=== PATIENT | male | born 1950 | race Caucasian/White ===

== ENCOUNTER 2017-07-22 14:14 | Inpatient (IN) | payer MEDICARE ==
[~2017-07-22] VITALS: Ht 172.7 cm; Wt 77.6 kg
[2017-07-22] MEDS ORDERED: IPRATROPIUM BROMIDE 0.5 MG/2.5 ML NEBU NEB ONE (14:30)
[2017-07-22] MEDS ORDERED: ALBUTEROL SULFATE 2.5 MG/3 ML NEBU NEB ONE (14:30)
[2017-07-22] MEDS ORDERED: IV NORMAL SALINE 500 ML BAG IV ONE (14:30)
[2017-07-22] MEDS ORDERED: methylPREDNISolone SOD SUCC 125 MG/2 ML VIAL IV ONE (14:30)
[2017-07-22] MEDS ORDERED: IPRATROPIUM BROMIDE 0.5 MG/2.5 ML NEBU ONE (14:34)
[2017-07-22] MEDS ORDERED: ALBUTEROL SULFATE 2.5 MG/3 ML NEBU ONE (14:34)
[2017-07-22 14:37] LABS: BASOPHILS % (AUTO) 0.4 % (0.0-2.0); EOSINOPHILS # (AUTO) 0.1 K/uL (0.0-0.7); EOSINOPHILS % (AUTO) 1.5 % (0.0-7.0); HEMATOCRIT 47.1 % (36.7-47.1); HEMOGLOBIN 15.5 g/dL (12.5-16.3); LYMPHOCYTES % (AUTO) 13.8 % (20.5-51.5); MEAN CORPUSCULAR HEMOGLOBIN 29.9 uug (23.8-33.4); MEAN CORPUSCULAR HGB CONC 33 g/dL (32.5-36.3); MEAN CORPUSCULAR VOLUME 90.9 fL (73.0-96.2); MONOCYTES # (AUTO) 0.9 K/uL (2.0-10.0); MONOCYTES % (AUTO) 12.1 % (0.0-11.0); NEUTROPHILS # (AUTO) 5.2 K/uL (1.8-8.9); NEUTROPHILS % (AUTO) 72.2 % (38.5-71.5); PLATELET COUNT (AUTO) 186 K/uL (152-348); RED BLOOD CELL COUNT(AUTO) 5.18 MIL/uL (4.06-5.63); WHITE BLOOD COUNT (AUTO) 7.2 K/uL (3.6-10.2)
[2017-07-22] MEDS ORDERED: GUAI-970 PO (14:39)
[2017-07-22] MEDS ORDERED: FAMO-132 PO (14:39)
[2017-07-22] MEDS ORDERED: ACET325T53 PO (14:39)
[2017-07-22] MEDS ORDERED: VITA400C24 PO (14:39)
[2017-07-22] MEDS ORDERED: ASCO500C18 PO (14:39)
[2017-07-22] MEDS ORDERED: TRYP500C PO (14:39)
[2017-07-22] MEDS ORDERED: LOPE2TAB23 PO (14:39)
[2017-07-22] MEDS ORDERED: ALPR0.5T8 PO ×2 (14:39)
[2017-07-22] MEDS ORDERED: MELA2.5L PO (14:39)
[2017-07-22] MEDS ORDERED: NA P133E4 RC (14:39)
[2017-07-22] MEDS ORDERED: CYAN10009 PO (14:39)
[2017-07-22] MEDS ORDERED: BISA10SU8 RC (14:39)
[2017-07-22] MEDS ORDERED: MAGN400O6 PO (14:39)
[2017-07-22] MEDS ORDERED: ZINC220C8 PO (14:39)
[2017-07-22] MEDS ORDERED: methylPREDNISolone SOD SUCC 125 MG/2 ML VIAL ONE (14:40)
[2017-07-22 14:45] LABS: POTASSIUM 4.2 mmol/L (3.5-5.1)
--- NOTE | 2017-07-22 14:45 | NUR ---
lab quang blood, solumedfrol iv administered , 500ml 0.9 ns bolus infusing, monitor shows sinus tach at 107, po2=97% on roomair, pt rec'd resp tx.
[2017-07-22 14:57] LABS: BILIRUBIN,DIRECT 0.1 mg/dL (0.0-0.2); BILIRUBIN,TOTAL 0.3 mg/dL (0.2-1.0); TOTAL PROTEIN, SERUM 7.9 g/dL (6.4-8.2)
[2017-07-22 15:40] VITALS: BP 150/83
--- NOTE | 2017-07-22 15:45 | NUR ---
NEW PATIENT FROM ER TO ROOM 215 AWAKE FORGETFUL ORTX1 HX OF DEMENTIA ON FALL /ASPIRATION PRECAUTION BED ALARM ON AND CALL LIGHT IN REACH AND REMIND TO CALL WHEN NEEDED
--- NOTE | 2017-07-22 16:00 | NUR ---
VS TAKEN STABLE FAMILY AT BEDSIDE COUGHING DRY NO SPUTUM SHABNAM LUNG STILL WHEEZING NO ACUTE DISTRESS CONTINUE O2 AT 2L O2 SAT WAS 94% CLOSED OBSERVATION
--- NOTE | 2017-07-22 17:00 | NUR ---
DR LIAO WAS CALL REGARDING NEW PATIENT NEED ADM ORDER AND MESSAGE LEFT
[2017-07-22] MEDS ORDERED: MAGNESIUM HYDROXIDE 30 ML LIQUID UDC PO PRN (17:30)
[2017-07-22] MEDS ORDERED: ONDANSETRON 4 MG/2 ML VIAL IV PRN (17:30)
[2017-07-22] MEDS ORDERED: FLEET ENEMA 133 ML BOTTLE RC PRN (17:30)
[2017-07-22] MEDS ORDERED: FAMOTIDINE 20 MG TABLET PO PRN (17:30)
[2017-07-22] MEDS ORDERED: Medication Not On Formulary EA (Ascorbic Acid (Vitamin C) 500 MG) PO SCH (17:30)
[2017-07-22] MEDS ORDERED: ACETAMINOPHEN 325 MG TABLET PO PRN (17:30)
[2017-07-22] MEDS ORDERED: ALPRAZOLAM 0.5 MG TABLET PO PRN ×2 (17:30)
[2017-07-22] MEDS ORDERED: BISACODYL 10 MG SUPP.RECT RC PRN (17:30)
--- NOTE | 2017-07-22 17:30 | NUR ---
DR LIAO HERE SEE PATIENT AND ORDER IN CHART,CXR DONE AT BEDSIDE RESTING NO SOB OR PAIN
[2017-07-22 17:40] LABS: *BILIRUBIN,URIN NEGATIVE (NEGATIVE); *BLOOD, URINE Trace-intact (NEGATIVE); *CLARITY,URINE CLEAR (CLEAR); *COLOR,URINE YELLOW (YELLOW); *KETONES,URINE 1+ (NEGATIVE); *PROTEIN,URINE TRACE (NEGATIVE); *UROBILINOGEN,URINE 0.2 E.U./dl (NORMAL); LEUKOCYTE ESTERASE ,URINE NEGATIVE (NEGATIVE); NITRITE, URINE NEGATIVE (NEGATIVE); PH,URINE 5.5 (5.0-8.0); UGLUCOSE NEGATIVE (NEGATIVE)
[2017-07-22 17:50] LABS: MUCUS,URINE MANY /LPF (0-FEW); WBC,URINE 0-3 /HPF (0-3)
--- NOTE | 2017-07-22 18:00 | NUR ---
EAT DINNER MOD AMT PO FLD CAMILO WELL VOIDING 150 ML UA SENT TO LAB ORDER
[2017-07-22] MEDS: CYANOCOBALAMIN 1,000 MCG TABLET PO SCH (18:28)
[2017-07-22] MEDS: VITAMIN E 400 UNITS CAPSULE PO SCH (18:28)
[2017-07-22] MEDS: methylPREDNISolone SOD SUCC 125 MG/2 ML VIAL IV SCH (18:28)
[2017-07-22] MEDS: ZINC SULFATE 220 MG CAPSULE PO SCH (18:28)
[2017-07-22] MEDS: ENOXAPARIN SODIUM 40 MG/0.4 ML DISP.SYRIN SQ SCH (18:29)
--- NOTE | 2017-07-22 18:30 | NUR ---
HEMODYNAMIC STATUS STABLE NO ACUTE DISTRESS CONTINUE O2 AT 2L O2 SAT 95% SAFETY MEASURE PROVIDED CALL LIGHT IN REACH AND BED ALARM ON
[2017-07-22 19:00] VITALS: BP 144/85
[2017-07-22] MEDS: IPRATROPIUM BROMIDE 0.5 MG/2.5 ML NEBU NEB SCH (19:30)
[2017-07-22] MEDS: ALBUTEROL SULFATE 2.5 MG/3 ML NEBU NEB SCH (19:30)
--- NOTE | 2017-07-22 19:54 | NUR ---
Observed to be receiving breathing tx at this time. No s/s of acute distress. Reoriented to time and place. Bed in low, locked position with bed alarm on. Call light within reach. Will continue to monitor closely.
[2017-07-22] MEDS ORDERED: MELATONIN PO SCH (21:00)
[2017-07-22] MEDS ORDERED: TRYPTOPHAN 500 MG PO SCH (21:00)
[2017-07-22] MEDS: ALPRAZOLAM 0.25 MG TABLET PO SCH (21:40)
[2017-07-23] MEDS: IPRATROPIUM BROMIDE 0.5 MG/2.5 ML NEBU NEB SCH ×4 (01:23→18:58)
[2017-07-23] MEDS: ALBUTEROL SULFATE 2.5 MG/3 ML NEBU NEB SCH ×4 (01:23→18:58)
[2017-07-23 04:00] VITALS: BP 140/82
--- NOTE | 2017-07-23 05:47 | NUR ---
IV access pulled out by patient. Restarted IV line on right hand 22 gauge and flushing well. No SOB. Intermittent cough and wheezing noted throughout the night. On O2 2L NC at 95%. Frequent reorientation provided. Lizett care, back care done and made comfortable. Bed in low, locked position with bed alarm on. Call light within reach. Will endorse accordingly.
[2017-07-23 06:55] LABS: BILIRUBIN,TOTAL 0.3 mg/dL (0.2-1.0); CREATININE 0.9 mg/dL (0.6-1.3); POTASSIUM 4.1 mmol/L (3.5-5.1); TOTAL PROTEIN, SERUM 7.2 g/dL (6.4-8.2)
[2017-07-23 07:14] LABS: BASOPHILS % (AUTO) 0.1 % (0.0-2.0); HEMATOCRIT 44.2 % (36.7-47.1); HEMOGLOBIN 14.7 g/dL (12.5-16.3); LYMPHOCYTES # (AUTO) 0.5 K/uL (20.0-40.0); LYMPHOCYTES % (AUTO) 9.4 % (20.5-51.5); MEAN CORPUSCULAR HEMOGLOBIN 30.4 uug (23.8-33.4); MEAN CORPUSCULAR HGB CONC 33 g/dL (32.5-36.3); MEAN CORPUSCULAR VOLUME 91.6 fL (73.0-96.2); MONOCYTES # (AUTO) 0.4 K/uL (2.0-10.0); MONOCYTES % (AUTO) 7.1 % (0.0-11.0); NEUTROPHILS # (AUTO) 4.7 K/uL (1.8-8.9); NEUTROPHILS % (AUTO) 83.4 % (38.5-71.5); PLATELET COUNT (AUTO) 180 K/uL (152-348); RED BLOOD CELL COUNT(AUTO) 4.83 MIL/uL (4.06-5.63); WHITE BLOOD COUNT (AUTO) 5.6 K/uL (3.6-10.2)
--- NOTE | 2017-07-23 08:00 | NUR ---
AWAKE FORGETFUL BUT COOPERATE AND FOLLOW SIMPLE DIRECTION WELL NO ACUTE DISTRESS CONTINUE O2 AT 2L O2 SAT WNL HOB UP AT ALL TIME ON FALL /ASPIRATION PRECAUTION BED ALARM ON AND CALL LIGHT WITHIN REACH
[2017-07-23] MEDS: ZINC SULFATE 220 MG CAPSULE PO SCH ×3 (08:03→16:45)
[2017-07-23] MEDS: VITAMIN E 400 UNITS CAPSULE PO SCH (08:03)
[2017-07-23] MEDS: methylPREDNISolone SOD SUCC 125 MG/2 ML VIAL IV SCH ×3 (08:03→16:45)
[2017-07-23] MEDS: ASCORBIC ACID 500 MG TABLET PO SCH (08:04)
[2017-07-23] MEDS: CYANOCOBALAMIN 1,000 MCG TABLET PO SCH (08:04)
[2017-07-23] MEDS: ALPRAZOLAM 0.25 MG TABLET PO SCH ×2 (08:04→16:45)
--- NOTE | 2017-07-23 09:30 | NUR ---
DR LIAO SEE PATIENT THIS AM AND NEW ORDER IN CHART FAMILY AT BEDSIDE
[2017-07-23] MEDS: AMLODIPINE 5 MG TABLET PO SCH (10:47)
[2017-07-23] MEDS ORDERED: Z GUARD REMEDY PASTE 57 GM TUBE TOP PRN (11:00)
[2017-07-23 11:46] VITALS: BP 122/75
--- NOTE | 2017-07-23 13:00 | NUR ---
RT GIVEN TREATMENT CAMILO PROCEDURE WELL CLOSED OBSERVATION
[2017-07-23 15:38] VITALS: BP 132/69
--- NOTE | 2017-07-23 17:30 | NUR ---
CONDITION IMPROVING STABLE HEMODYNAMIC STATUS NO ACUTE DISTRESS CONTINUE O2 AT 2L /MIN O2 SAT WNL ,PAIN UNDER CONTROL SAFETY MEASUREPROVIDED BED ALARM ON AND CALL ZALDIVAR IN REACH
[2017-07-23] MEDS: ENOXAPARIN SODIUM 40 MG/0.4 ML DISP.SYRIN SQ SCH (17:33)
[2017-07-23 19:00] VITALS: BP 139/73
--- NOTE | 2017-07-23 19:36 | NUR ---
Observed to be awake and watching tv. On O2 2L NC at this time, no wheezing noted at this time. Bed in low, locked position with bed alarm on. Call light within reach. Will continue to monitor closely.
[2017-07-23] MEDS: MELATONIN 3 MG TABLET PO SCH (20:33)
[2017-07-24] MEDS: IPRATROPIUM BROMIDE 0.5 MG/2.5 ML NEBU NEB SCH ×4 (01:30→19:21)
[2017-07-24] MEDS: ALBUTEROL SULFATE 2.5 MG/3 ML NEBU NEB SCH ×4 (01:30→19:21)
[2017-07-24 06:36] VITALS: BP 122/76
--- NOTE | 2017-07-24 06:46 | NUR ---
No s/s of respiratory distress. Frequent reorientation provided. All needs attended to. Safety environment provided at all times. Call light within reach. Will endorse accordingly.
--- NOTE | 2017-07-24 07:24 | NUR ---
PATIENT RESTING COMFORTABLY IN BED, NO S/S OF DISTRESS. STABLE CONDITION. URINAL AT BEDSIDE. NO SIGNS OF RESPIRATORY DISTRESS. SATURATING WNL WITHOUT OXYGEN AT THIS TIME. WILL CRUSH PILLS. WILL MONITOR RESPIRATORY ABILITY. BED IN LOCKED/LOW POSITION, SIDE RAILS UP X2, BED ALARM ON, CALL LIGHT WITHIN REACH.
[2017-07-24] MEDS: ALPRAZOLAM 0.25 MG TABLET PO SCH ×2 (08:15→16:22)
[2017-07-24] MEDS: VITAMIN E 400 UNITS CAPSULE PO SCH (08:15)
[2017-07-24] MEDS: ASCORBIC ACID 500 MG TABLET PO SCH (08:15)
[2017-07-24] MEDS: ZINC SULFATE 220 MG CAPSULE PO SCH ×3 (08:15→16:22)
[2017-07-24] MEDS: CYANOCOBALAMIN 1,000 MCG TABLET PO SCH (08:17)
[2017-07-24] MEDS: AMLODIPINE 5 MG TABLET PO SCH (08:18)
[2017-07-24] MEDS: methylPREDNISolone SOD SUCC 125 MG/2 ML VIAL IV SCH ×3 (08:18→16:22)
[2017-07-24 11:17] VITALS: BP 119/74
[2017-07-24] MEDS ORDERED: IPRATROPIUM BROMIDE 0.5 MG/2.5 ML NEBU NEB PRN (14:45)
[2017-07-24] MEDS ORDERED: ALBUTEROL SULFATE 2.5 MG/3 ML NEBU NEB PRN (14:45)
[2017-07-24] MEDS: MONTELUKAST SODIUM 10 MG TABLET PO SCH (14:55)
[2017-07-24 15:04] VITALS: BP 132/76
[2017-07-24] MEDS: CEFTRIAXONE 1 G in IV DEXTROSE 5% 50 ML IV SCH (15:32)
[2017-07-24] MEDS: ENOXAPARIN SODIUM 40 MG/0.4 ML DISP.SYRIN SQ SCH (16:37)
--- NOTE | 2017-07-24 18:31 | NUR ---
PT ON O2 2 LPM VIA N/C. RECEIVED PT TODAY, EXPERIENCED SOB WITH WEAK GAIT DURING PT SERVICES. RECEIVED BREATHING TREATMENT PER RT. NO SIGNS OF RESPIRATORY DISTRESS. PT FORGETFUL, FORGETS TO USE CALL LIGHT AND URINAL USE. BED ALARM ON, CALL LIGHT WITHIN REACH. STABLE CONDITION.
[2017-07-24 20:01] VITALS: BP 139/80
[2017-07-24] MEDS: MELATONIN 3 MG TABLET PO SCH (20:11)
[2017-07-25] MEDS: IPRATROPIUM BROMIDE 0.5 MG/2.5 ML NEBU NEB SCH ×4 (00:34→20:16)
[2017-07-25] MEDS: ALBUTEROL SULFATE 2.5 MG/3 ML NEBU NEB SCH ×4 (00:34→20:16)
[2017-07-25 05:52] VITALS: BP 119/86
--- NOTE | 2017-07-25 07:40 | NUR ---
RECEIVED PATIENT IN BED AWAKE ALERT ORIENTED ON O2 AT 2L/M BY NASAL CANULLA WITH NO SHORTNESS OF BREATH AT THIS TIME PATIENT HAS TENDENCY TO REMOVE CANULA REAPPLIED AND REDIRECTED PATIENT IS ALERT AND COOPERATIVE BUT IS DISORIENTED TO PLACE AND SITUATION BED ALARM IS IN USE HE THINKS THAT HE IS GOING SOMEWHERE ASSISTED NEEDED MADE COMFORTABLE
[2017-07-25 08:21] LABS: ABG BASE EXCESS 6.5 mmol/L; ABG PCO2 43.8 mmHg (35.0-45.0); ABG PH 7.468 (7.350-7.450); ABG PO2 54.4 mmHg (75.0-100.0); ABG SITE LEFT RADIAL; ABG TOTAL HEMOGLOBIN 15.6 G/dL (13.5-18.0); COHb 1.4 % (0.5-1.5); MetHb 0.2 % (0.0-1.5); O2Hb 88.2 % (94.0-97.0); VENT MODE room air
[2017-07-25] MEDS: VITAMIN E 400 UNITS CAPSULE PO SCH (08:26)
[2017-07-25] MEDS: ZINC SULFATE 220 MG CAPSULE PO SCH ×3 (08:26→16:22)
[2017-07-25] MEDS: ASCORBIC ACID 500 MG TABLET PO SCH (08:26)
[2017-07-25] MEDS: ALPRAZOLAM 0.25 MG TABLET PO SCH ×2 (08:27→16:22)
[2017-07-25] MEDS: AMLODIPINE 5 MG TABLET PO SCH (08:27)
[2017-07-25] MEDS: CYANOCOBALAMIN 1,000 MCG TABLET PO SCH (08:27)
[2017-07-25] MEDS: methylPREDNISolone SOD SUCC 125 MG/2 ML VIAL IV SCH ×3 (08:28→16:22)
--- NOTE | 2017-07-25 08:39 | NUR ---
abg done on room air around 0800 to check Po2. after result placed pt back on O2 via nasal cannula. will cont to monitor. check lab for abg report. no sob noted.
--- NOTE | 2017-07-25 11:04 | NUR ---
PATIENT SEEN AND EXAMINED BY DR HERNANDEZ HE IS AWARE OF THE ABG RESULTS THAT WAS DONE THIS MORNING WITH NEW ORDERS AND NOTED
[2017-07-25 11:38] VITALS: BP 143/77
[2017-07-25 11:51] LABS: LYMPHOCYTES # (AUTO) 0.7 K/uL (20.0-40.0); MONOCYTES # (AUTO) 0.9 K/uL (2.0-10.0)
[2017-07-25 11:56] LABS: POTASSIUM 4.1 mmol/L (3.5-5.1)
[2017-07-25 11:58] LABS: BASOPHILS % (AUTO) 0.1 % (0.0-2.0); HEMOGLOBIN 15.4 g/dL (12.5-16.3); LYMPHOCYTES % (AUTO) 7.3 % (20.5-51.5); MEAN CORPUSCULAR HEMOGLOBIN 29.9 uug (23.8-33.4); MEAN CORPUSCULAR HGB CONC 33 g/dL (32.5-36.3); MEAN CORPUSCULAR VOLUME 91.7 fL (73.0-96.2); MONOCYTES % (AUTO) 9.3 % (0.0-11.0); NEUTROPHILS # (AUTO) 8.2 K/uL (1.8-8.9); NEUTROPHILS % (AUTO) 83.3 % (38.5-71.5); PLATELET COUNT (AUTO) 185 K/uL (152-348); RED BLOOD CELL COUNT(AUTO) 5.13 MIL/uL (4.06-5.63)
[2017-07-25 12:00] LABS: WHITE BLOOD COUNT (AUTO) 9.9 K/uL (3.6-10.2)
[2017-07-25 12:03] LABS: BILIRUBIN,TOTAL 0.2 mg/dL (0.2-1.0); MAGNESIUM 2.3 mg/dL (1.8-2.4); PHOSPHOROUS 2.9 mg/dL (2.5-4.9); TOTAL PROTEIN, SERUM 7.1 g/dL (6.4-8.2)
[2017-07-25 12:55] LABS: THYROID STIMULATING HORMONE 0.086 mIU/mL (0.358-3.740)
[2017-07-25] MEDS: NICOTINE 21 MG/24HR PATCH TD SCH (12:56)
[2017-07-25] MEDS: CEFTRIAXONE 1 G in IV DEXTROSE 5% 50 ML IV SCH (14:58)
--- NOTE | 2017-07-25 15:24 | NUR ---
ORAL FLUID INTAKE HAS BEEN ADEQUATE REMAIN ON ATB ORDERED WITH NO ADVERSE OR ALLERGIC REACTIONS AT THIS TIME.
[2017-07-25 15:33] VITALS: BP 153/86
[2017-07-25] MEDS: ENOXAPARIN SODIUM 40 MG/0.4 ML DISP.SYRIN SQ SCH (16:36)
[2017-07-25] MEDS: MONTELUKAST SODIUM 10 MG TABLET PO SCH (17:03)
--- NOTE | 2017-07-25 18:00 | NUR ---
RESTING WITH O2 ORDERED REMAIN WITH SOBE MADE COMFORTABLE VOIDING ADEQUATELY
--- NOTE | 2017-07-25 20:00 | NUR ---
RECEIVED PATIENT AWAKE IN BED, HE'S AAOX2, EASILY SOB ON EXERTION HOB AT 45 DEGREES, BREATHING TREATMENT WAS ADMIN ORDERED. DENIES PAIN AT PRESENT. SAFETY MEASURES IN PLACE, CALL LIGHT WITHIN PATIENT'S REAC. WILL CONTINUE TO MONITOR PATIENT.
[2017-07-25] MEDS: MELATONIN 3 MG TABLET PO SCH (20:14)
[2017-07-25] MEDS: Z GUARD REMEDY PASTE 57 GM TUBE TOP SCH (20:15)
[2017-07-25 20:20] VITALS: BP 162/93
[2017-07-25] MEDS ORDERED: CLONIDINE HCL 0.1 MG TABLET PO PRN (21:00)
[2017-07-25 21:02] VITALS: BP 141/79
[2017-07-26] MEDS: ALBUTEROL SULFATE 2.5 MG/3 ML NEBU NEB SCH ×4 (01:50→19:54)
[2017-07-26] MEDS: IPRATROPIUM BROMIDE 0.5 MG/2.5 ML NEBU NEB SCH ×4 (01:50→19:54)
[2017-07-26 05:35] VITALS: BP 113/79
--- NOTE | 2017-07-26 06:08 | NUR ---
PATIENT SLEPT WELL THROUGHOUT THE SHIFT DENIES PAIN, BREATHING TREATMENTS ADMINISTERED ORDERED.NO ACUTE DISTRESS AT PRESENT. PATIENT CONFUSED MOST OF THE TIME, HE PULLED OUT HIS IV OUT. SAFETY MEASURES MAINTAINED AT ALL TIMES
[2017-07-26 07:55] LABS: BASOPHILS % (AUTO) 0.1 % (0.0-2.0); HEMOGLOBIN 14.9 g/dL (12.5-16.3); LYMPHOCYTES # (AUTO) 0.9 K/uL (20.0-40.0); LYMPHOCYTES % (AUTO) 11.1 % (20.5-51.5); MEAN CORPUSCULAR HEMOGLOBIN 30.2 uug (23.8-33.4); MEAN CORPUSCULAR HGB CONC 33 g/dL (32.5-36.3); MEAN CORPUSCULAR VOLUME 90.8 fL (73.0-96.2); MONOCYTES # (AUTO) 0.7 K/uL (2.0-10.0); NEUTROPHILS # (AUTO) 6.6 K/uL (1.8-8.9); NEUTROPHILS % (AUTO) 79.8 % (38.5-71.5); PLATELET COUNT (AUTO) 185 K/uL (152-348); RED BLOOD CELL COUNT(AUTO) 4.95 MIL/uL (4.06-5.63); WHITE BLOOD COUNT (AUTO) 8.3 K/uL (3.6-10.2)
[2017-07-26] MEDS: ASCORBIC ACID 500 MG TABLET PO SCH (08:00)
[2017-07-26] MEDS: ALPRAZOLAM 0.25 MG TABLET PO SCH ×2 (08:00→16:06)
[2017-07-26] MEDS: CYANOCOBALAMIN 1,000 MCG TABLET PO SCH (08:00)
[2017-07-26] MEDS: methylPREDNISolone SOD SUCC 125 MG/2 ML VIAL IV SCH ×3 (08:00→16:06)
[2017-07-26] MEDS: VITAMIN E 400 UNITS CAPSULE PO SCH (08:00)
[2017-07-26] MEDS: ZINC SULFATE 220 MG CAPSULE PO SCH ×3 (08:01→16:06)
[2017-07-26] MEDS: NICOTINE 21 MG/24HR PATCH TD SCH (08:01)
[2017-07-26] MEDS: AMLODIPINE 5 MG TABLET PO SCH (08:01)
[2017-07-26] MEDS: Z GUARD REMEDY PASTE 57 GM TUBE TOP SCH ×2 (08:02→20:24)
[2017-07-26 08:04] LABS: CREATININE 0.9 mg/dL (0.6-1.3); MAGNESIUM 2.6 mg/dL (1.8-2.4); POTASSIUM 4.1 mmol/L (3.5-5.1)
--- NOTE | 2017-07-26 11:00 | NUR ---
PT IS UP IN CHAIR AND FAMILY IS AT THE BED SIDE, DAUGHTER AND SON. LINING INSERTER CAME IN AND SPOKE WITH FAMILY ABOUT DISCHARGE PLANNING. FAMILY IS AGREEABLE WITH PLAN. PT ALSO HAD A VISIT FROM PHYSICAL THERAPY. PT BECAME A LITTLE DIZZY AND BP 156/91 AFTER EXERTION. PT WAS ABLE TO AMBULATE TO THE BATHROOM WITH FRONT WHEEL WALKER. PT AMBULATED TOLERATED. CONTINUE TO MONITOR PT.
[2017-07-26 11:17] VITALS: BP 150/81
[2017-07-26] MEDS: CEFTRIAXONE 1 G in IV DEXTROSE 5% 50 ML IV SCH (14:03)
[2017-07-26 15:19] VITALS: BP 155/79
[2017-07-26] MEDS ORDERED: CLON0.1T14 PO (16:32)
[2017-07-26] MEDS ORDERED: NICO-672 TD (16:32)
[2017-07-26] MEDS ORDERED: PRED20TA PO (16:32)
[2017-07-26] MEDS ORDERED: ALBU2.5V13 NEB (16:32)
[2017-07-26] MEDS ORDERED: ASPI-618 PO (16:32)
[2017-07-26] MEDS ORDERED: ACET-2154 PO (16:32)
[2017-07-26] MEDS ORDERED: MONT10TA22 PO (16:32)
[2017-07-26] MEDS ORDERED: MELA3TAB PO (16:32)
[2017-07-26] MEDS: ENOXAPARIN SODIUM 40 MG/0.4 ML DISP.SYRIN SQ SCH (16:32)
[2017-07-26] MEDS ORDERED: AMLO5TAB2 PO (16:32)
[2017-07-26] MEDS: MONTELUKAST SODIUM 10 MG TABLET PO SCH (17:03)
[2017-07-26] MEDS ORDERED: IPRA0.2S6 NEB (17:05)
[2017-07-26] MEDS ORDERED: NICOTINE 14 MG TD (17:05)
[2017-07-26 20:00] VITALS: BP 145/88
--- NOTE | 2017-07-26 20:00 | NUR ---
PATIENT IS AWAKE IN BED AAOX1 AND CONFUSED. NO RESP DISTRESS OR ACUTE DISTRESS ON ASSESSMENT. O2 ON AT 2LPM WITH HOB AT 45 DEGREES. SAFETY MEASURES IN PLACE, CALL LIGHT WITHIN PATIENT'S REACH, BED ALARM ON. WILL CONTINUE TO MONITOR PATIENT.
[2017-07-26] MEDS: MELATONIN 3 MG TABLET PO SCH (20:22)
== END 2017-07-26 21:08 | DRG 189 ==
LOC: ER 14:15 → TELE 15:08 → MED 21:00
PROVIDERS: ADMIT Internal Medicine; ATTEND Internal Medicine
DX: J96.01 Acute respiratory failure with hypoxia (principal); G92 Toxic encephalopathy; J45.901 Unspecified asthma with (acute) exacerbation; D68.59 Other primary thrombophilia; F03.90 Unspecified dementia, unspecified severity, without behavioral disturbance, psychotic disturbance, mood disturbance, and anxiety; F17.210 Nicotine dependence, cigarettes, uncomplicated; I10 Essential (primary) hypertension; I45.10 Unspecified right bundle-branch block; J20.9 Acute bronchitis, unspecified; F41.9 Anxiety disorder, unspecified; R53.1 Weakness; J84.10 Pulmonary fibrosis, unspecified; J44.9 Chronic obstructive pulmonary disease, unspecified
CPT/HCPCS: 36415; 36600; 70030-TC; 70450; 71045; 82785; 82803; 83605; 83735; 84100; 84443; 85025; 87040; 87400; 92610; 93005; 94640; 97110; 97116; 97530; A4663; J0696; J1650; J2930; J3590; J7040; J7050; J7060

== ENCOUNTER 2017-07-26 20:27 | Inpatient (IN) | payer MEDICARE ==
[~2017-07-26] VITALS: Ht 172.7 cm; Wt 77.7 kg
[~2017-07-26 20:27] MED LIST: ACET-2154 PO; ACET325T53 PO; ALBU2.5V13 NEB; ALPR0.5T8 PO; AMLO5TAB2 PO; ASCO500C18 PO; ASPI-618 PO; BISA10SU8 RC; CLON0.1T14 PO; CYAN10009 PO; FAMO-132 PO; GUAI-970 PO; IPRA0.2S6 NEB; LOPE2TAB23 PO; MAGN400O6 PO; MELA2.5L PO; MELA3TAB PO; MONT10TA22 PO; NA P133E4 RC; NICO-672 TD; NICOTINE 14 MG TD; PRED20TA PO; TRYP500C PO; VITA400C24 PO; ZINC220C8 PO
--- NOTE | 2017-07-26 21:00 | NUR ---
PT ARRIVED VIA W/C FROM [facility] ALERT AWAKE IN NO RESP DISTRESS. OXYGEN MAINTAINED AT 2L/MIN WITH 96%. PT NOTED WITH CONFUSION AND NEEDS FREQUENT REORIENTATION. VITAL SIGNS ARE WNL. AWAITING MD ORDERS. WILL CONTINUE TO MONITOR. HOB ELEVATED 30 DEGREES. 3 SIDE RAILS RAISED WITH BED ALARM ON.
[2017-07-26 21:34] VITALS: BP 128/71
[2017-07-26] MEDS ORDERED: Z GUARD REMEDY PASTE 57 GM TUBE TOP PRN (23:00)
[2017-07-26] MEDS ORDERED: PHENYLEPHRINE PO PRN (23:15)
[2017-07-26] MEDS ORDERED: IPRATROPIUM BROMIDE 0.5 MG/2.5 ML NEBU NEB PRN (23:15)
[2017-07-26] MEDS ORDERED: GUAIFENESIN PO PRN (23:15)
[2017-07-26] MEDS ORDERED: FAMOTIDINE 20 MG TABLET PO PRN (23:15)
[2017-07-26] MEDS ORDERED: BISACODYL 10 MG SUPP.RECT RC PRN (23:15)
[2017-07-26] MEDS ORDERED: FLEET ENEMA 133 ML BOTTLE RC PRN (23:15)
[2017-07-26] MEDS ORDERED: [UNRECOGNIZED DRUG - OTHER] PO PRN (23:15)
[2017-07-26] MEDS ORDERED: ACETAMINOPHEN 325 MG TABLET PO PRN (23:15)
[2017-07-26] MEDS ORDERED: MAGNESIUM HYDROXIDE 30 ML LIQUID UDC PO PRN (23:15)
[2017-07-26] MEDS ORDERED: DEXTROMETHORPHAN PO PRN (23:15)
[2017-07-26] MEDS ORDERED: CLONIDINE HCL 0.1 MG TABLET PO PRN (23:15)
[2017-07-27] MEDS: ALBUTEROL SULFATE 2.5 MG/ 0.5 ML NEBU NEB PRN (01:12)
--- NOTE | 2017-07-27 05:43 | NUR ---
PT IN ROOM ASLEEP IN NO ACUTE DISTRESS. PERIODS OF CONFUSION STILL PRESENT AND REMOVING OXYGEN N/C. REMINDED PT TO KEEP OXYGEN ON AND TO INFORM STAFF FOR ANY ASSISTANCE. V/S ARE WNL. URINAL AT BEDSIDE WITH 3 SIDE RAILS RAISED WITH BED ALARM ON. SCDs APPLIED.
[2017-07-27 05:45] VITALS: BP 121/83
[2017-07-27] MEDS ORDERED: CLONIDINE HCL 0.1 MG TABLET PO PRN (07:15)
[2017-07-27] MEDS ORDERED: GUAIFENESIN/DEXTROMETHORPHAN 5 ML UDC PO PRN (07:15)
[2017-07-27 08:00] VITALS: BP 129/83
[2017-07-27] MEDS: ZINC SULFATE 220 MG CAPSULE PO SCH ×3 (08:30→16:20)
[2017-07-27] MEDS: ASPIRIN EC 81 MG TABLET.DR PO SCH (08:30)
[2017-07-27] MEDS: AMLODIPINE 5 MG TABLET PO SCH (08:30)
[2017-07-27] MEDS: CYANOCOBALAMIN 1,000 MCG TABLET PO SCH (08:31)
[2017-07-27] MEDS: ASCORBIC ACID 500 MG TABLET PO SCH (08:31)
[2017-07-27] MEDS: predniSONE 20 MG TABLET PO SCH ×3 (08:31→16:20)
--- NOTE | 2017-07-27 09:00 | NUR ---
Received report from shift supervisor nurse . pt assessed , vitals stable , A & O x 1 , name only , pt had difficulty swallowing , implemented aspiration precautions , crushed pills , given meds with pudding , pt tolerates , Applied scd pumps on , bed alarm on , pt on 2L O2 satting WNL , will continue to monitor.
[2017-07-27] MEDS: VITAMIN E 400 UNITS CAPSULE PO SCH (09:50)
[2017-07-27] MEDS: ALPRAZOLAM 0.5 MG TABLET PO PRN (13:26)
[2017-07-27] MEDS: ALBUTEROL SULFATE 2.5 MG/3 ML NEBU NEB SCH ×2 (14:10→19:10)
[2017-07-27] MEDS: IPRATROPIUM BROMIDE 0.5 MG/2.5 ML NEBU NEB SCH ×2 (14:10→19:10)
[2017-07-27 16:00] VITALS: BP 132/83
[2017-07-27] MEDS: MONTELUKAST SODIUM 10 MG TABLET PO SCH (17:30)
--- NOTE | 2017-07-27 18:13 | NUR ---
pt continues to be stable throughout the day. pt had an incident of wheeling himself out of the room. applied bed alarm on. titrated o2 to 1L and tolerates. will endorse to cage shift manager nurse.
--- NOTE | 2017-07-27 20:00 | NUR ---
Patient received at bed. Awake, Alert, and Oriented X2. No acute distress, or SOB was noted. Has O2 2 Lit/min through nasal canula. VS are stable. HOB elevated, bed alarm and bed brake on for safety precaution. Three side rails are up. Call light and personal belonging within reach. Continue to monitor.
[2017-07-27 20:22] VITALS: BP 127/85
[2017-07-27] MEDS: MELATONIN 3 MG TABLET PO SCH (20:51)
[2017-07-27] MEDS ORDERED: TRYPTOPHAN 500 MG PO SCH (21:00)
[2017-07-28 05:17] VITALS: BP 122/79
--- NOTE | 2017-07-28 06:55 | NUR ---
End of the shift note Awake, Alert, and Oriented X2. No acute distress, or SOB was noted. Currently on O2 1 lit/min. VS are stable. HOB elevated, bed alarm and bed brake on for safety precaution. Three side rails are up. Call light and personal belonging within reach. All needs attended. Will give SBAR report to the day shift nurse.
[2017-07-28] MEDS: IPRATROPIUM BROMIDE 0.5 MG/2.5 ML NEBU NEB SCH ×3 (07:10→20:49)
[2017-07-28] MEDS: ALBUTEROL SULFATE 2.5 MG/3 ML NEBU NEB SCH ×3 (07:10→20:50)
[2017-07-28 08:00] VITALS: BP 123/81
[2017-07-28] MEDS: ASCORBIC ACID 500 MG TABLET PO SCH (08:17)
[2017-07-28] MEDS: ZINC SULFATE 220 MG CAPSULE PO SCH ×3 (08:17→17:19)
[2017-07-28] MEDS: ASPIRIN EC 81 MG TABLET.DR PO SCH (08:17)
[2017-07-28] MEDS: ALPRAZOLAM 0.5 MG TABLET PO PRN (08:17)
[2017-07-28] MEDS: predniSONE 20 MG TABLET PO SCH ×3 (08:17→17:20)
[2017-07-28] MEDS: VITAMIN E 400 UNITS CAPSULE PO SCH (08:18)
[2017-07-28] MEDS: AMLODIPINE 5 MG TABLET PO SCH (08:18)
[2017-07-28] MEDS: CYANOCOBALAMIN 1,000 MCG TABLET PO SCH (08:18)
--- NOTE | 2017-07-28 09:32 | NUR ---
pt seen on rounding. pt more alert compared to yesterday. pt o2 titrated down to 1 L but shift supervisor rn nurse states that pt tolerates room air. will reevaluate. vitals stable. pt ate breakfast and took pills whole. no signs of aspiration. pt has good appetite. will follow up if any new orders.
[2017-07-28 16:00] VITALS: BP 144/96
--- NOTE | 2017-07-28 16:17 | NUR ---
INTERDISCIPLINARY TEAM CONFERENCE
[2017-07-28] MEDS: MONTELUKAST SODIUM 10 MG TABLET PO SCH (17:19)
--- NOTE | 2017-07-28 18:57 | NUR ---
pt stable throughout shift. pt showed signs of sundowning. contacted md for prn medications and order for a sitter. pt tolerates room air. no new orders will endorse to second shift supervisor nurse.
[2017-07-28 19:30] VITALS: BP 167/91
[2017-07-28] MEDS ORDERED: LORAZEPAM 1 MG TABLET PO ONE (19:30)
--- NOTE | 2017-07-28 20:00 | NUR ---
Patient received at bed. Awake, Alert, and Oriented X3. Hard to understand his speaking. No acute distress, or SOB was noted. Has O2 2 Lit/min through nasal canula. VS are stable. HOB elevated, bed alarm and bed brake on for safety precaution. Three side rails are up. Call light and personal belonging within reach. A sitter at the bedside. Continue to monitor.
[2017-07-28] MEDS: MELATONIN 3 MG TABLET PO SCH (20:29)
[2017-07-28] MEDS: ALBUTEROL SULFATE 2.5 MG/ 0.5 ML NEBU NEB PRN ×2 (20:49→20:50)
--- NOTE | 2017-07-29 06:07 | NUR ---
End of the shift note Awake, Alert, and Oriented X3. No acute distress, or SOB was noted. Currently on O2 1 lit/min. VS are stable. Med given as ordered. Had good rest throughout the night. HOB elevated, bed alarm and bed brake on for safety precaution. Three side rails are up. Call light and personal belonging within reach. All needs attended. Will give SBAR report to the day shift nurse for continuity of care.
[2017-07-29 06:11] VITALS: BP 128/72
[2017-07-29] MEDS: IPRATROPIUM BROMIDE 0.5 MG/2.5 ML NEBU NEB SCH ×3 (07:08→19:10)
[2017-07-29] MEDS: ALBUTEROL SULFATE 2.5 MG/3 ML NEBU NEB SCH ×3 (07:08→19:10)
[2017-07-29 07:52] VITALS: BP 109/67
[2017-07-29] MEDS: ASCORBIC ACID 500 MG TABLET PO SCH (09:19)
[2017-07-29] MEDS: ASPIRIN EC 81 MG TABLET.DR PO SCH (09:19)
[2017-07-29] MEDS: VITAMIN E 400 UNITS CAPSULE PO SCH (09:20)
[2017-07-29] MEDS: ZINC SULFATE 220 MG CAPSULE PO SCH ×3 (09:20→17:21)
[2017-07-29] MEDS: CYANOCOBALAMIN 1,000 MCG TABLET PO SCH (09:21)
[2017-07-29] MEDS: AMLODIPINE 5 MG TABLET PO SCH (09:25)
[2017-07-29] MEDS: ALBUTEROL SULFATE 2.5 MG/ 0.5 ML NEBU NEB PRN ×2 (13:06→19:10)
[2017-07-29] MEDS: ALPRAZOLAM 0.5 MG TABLET PO PRN (15:02)
[2017-07-29 15:49] VITALS: BP 119/80
[2017-07-29] MEDS: MONTELUKAST SODIUM 10 MG TABLET PO SCH (17:21)
--- NOTE | 2017-07-29 19:01 | NUR ---
Patient alert, with confusion at times. Stable vital sign and recorded. call light within reached. no agitation at this time and cooperative.
[2017-07-29 19:31] VITALS: BP 113/79
[2017-07-29] MEDS: MELATONIN 3 MG TABLET PO SCH (20:40)
[2017-07-30 05:58] VITALS: BP 122/60
--- NOTE | 2017-07-30 06:35 | NUR ---
PT DOING WELL OVERNIGHT,COOPERATIVE ,WATCHING TV, DENIES ANY PAIN, REMAINS IN BED,WITH SITTER FOR SAFETY.NO ACUTE DISTRESS,VSS,AFEBRILE.
[2017-07-30] MEDS: ALBUTEROL SULFATE 2.5 MG/3 ML NEBU NEB SCH ×3 (07:11→19:10)
[2017-07-30] MEDS: IPRATROPIUM BROMIDE 0.5 MG/2.5 ML NEBU NEB SCH ×3 (07:11→19:10)
--- NOTE | 2017-07-30 07:30 | NUR ---
Pt received in bed awake,alert,confused.Reoriented to time,place,environment.Denies pain,discomfort.No SOB noted.Sitter 1:1 at bedside for safety.Will continue to monitor.
[2017-07-30 07:49] VITALS: BP 115/79
[2017-07-30] MEDS: ASCORBIC ACID 500 MG TABLET PO SCH (09:34)
[2017-07-30] MEDS: CYANOCOBALAMIN 1,000 MCG TABLET PO SCH (09:34)
[2017-07-30] MEDS: ZINC SULFATE 220 MG CAPSULE PO SCH ×3 (09:34→17:20)
[2017-07-30] MEDS: ASPIRIN EC 81 MG TABLET.DR PO SCH (09:35)
[2017-07-30] MEDS: VITAMIN E 400 UNITS CAPSULE PO SCH (09:35)
[2017-07-30] MEDS: AMLODIPINE 5 MG TABLET PO SCH (09:35)
[2017-07-30 16:05] VITALS: BP 122/89
[2017-07-30] MEDS: MONTELUKAST SODIUM 10 MG TABLET PO SCH (17:20)
[2017-07-30 19:46] VITALS: BP 149/91
--- NOTE | 2017-07-30 20:00 | NUR ---
Patient received sitting on the wheelchair, watching. Awake, Alert, and Oriented X3, but had hard time to remember the words. Hard to understand his speaking. No acute distress, or SOB was noted. Has O2 2 Lit/min through nasal canula PRN. VS are stable. HOB elevated, bed alarm and bed brake on for safety precaution. Three side rails are up. Call light and personal belonging within reach. Continue to monitor.
[2017-07-30] MEDS: MELATONIN 3 MG TABLET PO SCH (20:53)
--- NOTE | 2017-07-31 06:37 | NUR ---
End of the shift note Awake, Alert, and Oriented X2. No acute distress, or SOB was noted. Currently on room air. VS are stable. Meds given as ordered. HOB elevated, bed alarm and bed brake on for safety precaution. Three side rails are up. Three times tried to get out of the bed to go to the restroom. Call light and personal belonging within reach. All needs attended. Will give SBAR report to the day shift nurse.
[2017-07-31] MEDS: IPRATROPIUM BROMIDE 0.5 MG/2.5 ML NEBU NEB SCH ×5 (07:06→19:15)
[2017-07-31] MEDS: ALBUTEROL SULFATE 2.5 MG/3 ML NEBU NEB SCH (07:06)
[2017-07-31 08:01] LABS: BASOPHILS % (AUTO) 0.1 % (0.0-2.0); EOSINOPHILS # (AUTO) 0.4 K/uL (0.0-0.7); EOSINOPHILS % (AUTO) 3.1 % (0.0-7.0); HEMATOCRIT 47.1 % (36.7-47.1); HEMOGLOBIN 15.6 g/dL (12.5-16.3); LYMPHOCYTES # (AUTO) 2.6 K/uL (20.0-40.0); LYMPHOCYTES % (AUTO) 21.9 % (20.5-51.5); MEAN CORPUSCULAR HEMOGLOBIN 29.7 uug (23.8-33.4); MEAN CORPUSCULAR HGB CONC 33 g/dL (32.5-36.3); MONOCYTES # (AUTO) 0.9 K/uL (2.0-10.0); MONOCYTES % (AUTO) 7.7 % (0.0-11.0); NEUTROPHILS # (AUTO) 8.1 K/uL (1.8-8.9); NEUTROPHILS % (AUTO) 67.2 % (38.5-71.5); PLATELET COUNT (AUTO) 180 K/uL (152-348); RED BLOOD CELL COUNT(AUTO) 5.24 MIL/uL (4.06-5.63); WHITE BLOOD COUNT (AUTO) 12.1 K/uL (3.6-10.2)
[2017-07-31 08:03] VITALS: BP 121/79
[2017-07-31 08:19] LABS: BILIRUBIN,TOTAL 0.7 mg/dL (0.2-1.0); CREATININE 0.9 mg/dL (0.6-1.3); MAGNESIUM 2.4 mg/dL (1.8-2.4); PHOSPHOROUS 3.6 mg/dL (2.5-4.9); POTASSIUM 3.6 mmol/L (3.5-5.1); TOTAL PROTEIN, SERUM 5.9 g/dL (6.4-8.2)
[2017-07-31] MEDS: AMLODIPINE 5 MG TABLET PO SCH (08:21)
[2017-07-31] MEDS: ASPIRIN EC 81 MG TABLET.DR PO SCH (08:21)
[2017-07-31] MEDS: VITAMIN E 400 UNITS CAPSULE PO SCH (08:21)
[2017-07-31] MEDS: CYANOCOBALAMIN 1,000 MCG TABLET PO SCH (08:21)
[2017-07-31] MEDS: ASCORBIC ACID 500 MG TABLET PO SCH (08:21)
[2017-07-31] MEDS: ZINC SULFATE 220 MG CAPSULE PO SCH ×3 (08:21→17:32)
[2017-07-31] MEDS: ALBUTEROL SULFATE 2.5 MG/ 0.5 ML NEBU NEB SCH ×4 (10:47→19:16)
[2017-07-31] MEDS ORDERED: IPRATROPIUM/ALBUTEROL SULFATE 14.7 GM INHALER INH SCH (11:00)
[2017-07-31] MEDS: NICOTINE 21 MG/24HR PATCH TD SCH (11:45)
--- NOTE | 2017-07-31 15:48 | NUR ---
pt seen on rounding. pt continues to be confused. vitals stable. aspiration precautions implemented. encouraged pt for meals. pt given meds crushed. pt more alert compared to previous days. will continue to monitor.
[2017-07-31 16:00] VITALS: BP 96/61
[2017-07-31] MEDS: MONTELUKAST SODIUM 10 MG TABLET PO SCH (17:32)
[2017-07-31 19:38] VITALS: BP 116/80
[2017-07-31] MEDS: MELATONIN 3 MG TABLET PO SCH (20:50)
[2017-07-31] MEDS: ALPRAZOLAM 0.5 MG TABLET PO PRN (20:50)
[2017-08-01 05:57] VITALS: BP 118/79
[2017-08-01] MEDS: ALBUTEROL SULFATE 2.5 MG/ 0.5 ML NEBU NEB SCH (07:14)
[2017-08-01] MEDS: IPRATROPIUM BROMIDE 0.5 MG/2.5 ML NEBU NEB SCH (07:14)
[2017-08-01 07:27] VITALS: BP 99/68
[2017-08-01] MEDS: ASPIRIN EC 81 MG TABLET.DR PO SCH (08:48)
[2017-08-01] MEDS: ASCORBIC ACID 500 MG TABLET PO SCH (08:48)
[2017-08-01 08:49] VITALS: BP 89/50
[2017-08-01] MEDS: AMLODIPINE 5 MG TABLET PO SCH (08:49)
[2017-08-01] MEDS: CYANOCOBALAMIN 1,000 MCG TABLET PO SCH (08:49)
[2017-08-01] MEDS: NICOTINE 21 MG/24HR PATCH TD SCH (08:50)
[2017-08-01] MEDS: ZINC SULFATE 220 MG CAPSULE PO SCH (09:00)
[2017-08-01] MEDS: VITAMIN E 400 UNITS CAPSULE PO SCH (09:00)
--- NOTE | 2017-08-01 09:45 | NUR ---
Patient discharge against medical advice around 930 with son with diagnosis of COPD exacerbation, OXY SAT: 94% room air. not in distress. medication 9am given prior to discharge. signed leaving hospital against medical or treatment form. disclosure of viviane information formed signed. copy given. Assisted to medical record and offered to assist to the lobby but the son refused. risk of discharge without medical advice given.
--- NOTE | 2017-08-01 15:11 | NUR ---
Addendum: MD catalan and LOLA Garcia notified about AMA.
== END 2017-08-01 09:30 | disposition left against medical advice (07) | DRG 190 ==
PROVIDERS: ADMIT Physical Medicine & Rehabilitation Pain Medicine; ATTEND Physical Medicine & Rehabilitation Pain Medicine
DX: J44.0 Chronic obstructive pulmonary disease with (acute) lower respiratory infection (principal); G92 Toxic encephalopathy; J96.01 Acute respiratory failure with hypoxia; D68.59 Other primary thrombophilia; J20.9 Acute bronchitis, unspecified; J84.10 Pulmonary fibrosis, unspecified; J44.1 Chronic obstructive pulmonary disease with (acute) exacerbation; F03.90 Unspecified dementia, unspecified severity, without behavioral disturbance, psychotic disturbance, mood disturbance, and anxiety; I10 Essential (primary) hypertension; F17.210 Nicotine dependence, cigarettes, uncomplicated; I45.10 Unspecified right bundle-branch block; R26.9 Unspecified abnormalities of gait and mobility; R53.1 Weakness; M19.90 Unspecified osteoarthritis, unspecified site
CPT/HCPCS: 36415; 71045; 83735; 84100; 85025; 92526; 92610; 94640; 94664; 97110; 97112; 97116; 97530; 97535; A4663; J3590; J7512

== ENCOUNTER 2018-03-22 23:10 | Emergency (ER) | payer MEDICARE ==
[~2018-03-22] VITALS: Ht 172.7 cm; Wt 90.7 kg
[~2018-03-22 23:10] MED LIST changes: -ACET325T53 PO; -AMLO5TAB2 PO; +AMLO5TAB9 PO; -LOPE2TAB23 PO; -MELA2.5L PO; -NICO-672 TD
[2018-03-22] MEDS ORDERED: TDAP DIPH,PERTUSS,TET VAC/PF 0.5 ML DISP.SYRIN IM ONE ×2 (23:15→23:35)
[2018-03-22] MEDS ORDERED: NEOMY/BACITRA/POLYMYXIN B OINT UD PACKET TP ONE ×2 (23:15→23:35)
[2018-03-22] MEDS ORDERED: IV NORMAL SALINE 500 ML BAG IV ONE (23:15)
--- NOTE | 2018-03-22 23:30 | NUR ---
Pt. BIB [facility] for scalp laceration above L eyebrow and middle forehead abrasion [facility], pt. has some dementia but states he did not lose consciousness, denies pain, denies MCCLELLAN/F/C/N/V, UE/LE strength equal bilat. and symmetrical, developmental education instructor in room w/ pt. and states he witnessed the pt. just after the fall and suggests that he may have hit head on sink, EKG performed,
[2018-03-22 23:36] LABS: BASOPHILS # (AUTO) 0.1 K/uL (0.0-8.0); BASOPHILS % (AUTO) 0.6 % (0.0-2.0); EOSINOPHILS # (AUTO) 0.3 K/uL (0.0-0.7); EOSINOPHILS % (AUTO) 3.5 % (0.0-7.0); HEMATOCRIT 46.6 % (36.7-47.1); HEMOGLOBIN 15.4 g/dL (12.5-16.3); LYMPHOCYTES # (AUTO) 1.9 K/uL (20.0-40.0); LYMPHOCYTES % (AUTO) 22.5 % (20.5-51.5); MEAN CORPUSCULAR HEMOGLOBIN 30.2 uug (23.8-33.4); MEAN CORPUSCULAR HGB CONC 33 g/dL (32.5-36.3); MEAN CORPUSCULAR VOLUME 91.3 fL (73.0-96.2); MONOCYTES # (AUTO) 0.9 K/uL (2.0-10.0); MONOCYTES % (AUTO) 10.8 % (0.0-11.0); NEUTROPHILS # (AUTO) 5.3 K/uL (1.8-8.9); NEUTROPHILS % (AUTO) 62.6 % (38.5-71.5); PLATELET COUNT (AUTO) 195 K/uL (152-348); WHITE BLOOD COUNT (AUTO) 8.5 K/uL (3.6-10.2)
[2018-03-22 23:48] LABS: BILIRUBIN,DIRECT 0.1 mg/dL (0.0-0.2); BILIRUBIN,TOTAL 0.3 mg/dL (0.2-1.0); CREATININE 0.9 mg/dL (0.6-1.3); POTASSIUM 4.4 mmol/L (3.5-5.1); TOTAL PROTEIN, SERUM 7.3 g/dL (6.4-8.2)
--- NOTE | 2018-03-22 23:50 | NUR ---
Pt. taken off unit via stretcher for CT of head
--- NOTE | 2018-03-23 00:10 | NUR ---
Pt. back on unit, IV fluids continued - patent, no s/s infiltration/phlebitis,
--- NOTE | 2018-03-23 00:46 | NUR ---
Called [facility] to request CT head to be read,
--- NOTE | 2018-03-23 01:07 | NUR ---
Gilda called for transport back to [facility], trip #[id number] - ETA [id number]
--- NOTE | 2018-03-23 02:00 | NUR ---
Pt. resting in bed, w/ eyes closed, NAD, school age lead teacher at bedside,
--- NOTE | 2018-03-23 02:48 | NUR ---
Pt. given urinal to void at bedside, NAD
--- NOTE | 2018-03-23 02:56 | NUR ---
400cc urine voided - straw yellow, odorless,
--- NOTE | 2018-03-23 03:35 | NUR ---
[facility] unit #[id number] here for transport,
--- NOTE | 2018-03-23 03:40 | NUR ---
Patient discharged to home in stable conditon. Written and verbal after care instructions given. Patient verbalizes understanding of instructions. Pt. taken off d/c per MD orders, d/c papers given, all belongings w/ pt., ID band/IV removed, taken off unit in ambulance stretcher accompanied by street light repairer helper, BRANDON,
== END 2018-03-23 03:49 | disposition home or self-care (01) ==
LOC: ER 23:11
DX: S00.81XA Abrasion of other part of head, initial encounter (principal); S09.90XA Unspecified injury of head, initial encounter; I45.10 Unspecified right bundle-branch block; Z79.82 Long term (current) use of aspirin; Z79.899 Other long term (current) drug therapy; W18.39XA Other fall on same level, initial encounter; Y93.89 Activity, other specified; Y92.89 Other specified places as the place of occurrence of the external cause; Y99.8 Other external cause status
CPT/HCPCS: 36415; 70030-TC; 70450; 71045; 72125; 72170; 85025; 85730; 90715; 93005; A4663; J7030; J7040

== ENCOUNTER 2019-06-10 19:30 | Inpatient (IN) | payer MEDICARE ==
[~2019-06-10] VITALS: Ht 175.3 cm; Wt 79.8 kg
[~2019-06-10 19:30] MED LIST changes: -BISA10SU8 RC; +BISA10SU95 RC; -MELA3TAB PO; +MELA3TAB41 PO; +ZINC1CAP2 PO; -ZINC220C8 PO
--- NOTE | 2019-06-10 20:00 | NUR ---
PATIENT PLACED ON 4L NC DR MENDIOLA AWARE. O2 SAT 89 % ROOM AIR. WILL CONTINUE TO MONITOR
[2019-06-10 20:16] LABS: BASOPHILS % (AUTO) 0.2 % (0.0-2.0); EOSINOPHILS % (AUTO) 0.1 % (0.0-7.0); HEMATOCRIT 46.6 % (36.7-47.1); HEMOGLOBIN 15.6 g/dL (12.5-16.3); LYMPHOCYTES # (AUTO) 1.1 K/uL (20.0-40.0); LYMPHOCYTES % (AUTO) 18.3 % (20.5-51.5); MEAN CORPUSCULAR HEMOGLOBIN 30.1 uug (23.8-33.4); MEAN CORPUSCULAR HGB CONC 33 g/dL (32.5-36.3); MONOCYTES # (AUTO) 0.6 K/uL (2.0-10.0); NEUTROPHILS # (AUTO) 4.2 K/uL (1.8-8.9); NEUTROPHILS % (AUTO) 71.4 % (38.5-71.5); PLATELET COUNT (AUTO) 118 K/uL (152-348); RED BLOOD CELL COUNT(AUTO) 5.18 MIL/uL (4.06-5.63); WHITE BLOOD COUNT (AUTO) 5.9 K/uL (3.6-10.2)
[2019-06-10 20:23] LABS: CREATININE 1.1 mg/dL (0.6-1.3); POTASSIUM 3.6 mmol/L (3.5-5.1)
[2019-06-10 20:36] LABS: BILIRUBIN,TOTAL 0.6 mg/dL (0.2-1.0); TOTAL PROTEIN, SERUM 6.9 g/dL (6.4-8.2)
[2019-06-10] MEDS ORDERED: ASPIRIN 325 MG TABLET PO ONE (20:45)
[2019-06-10] MEDS ORDERED: METOPROLOL TARTRATE 5 MG/5 ML VIAL IVP ONE ×2 (20:45→20:50)
[2019-06-10] MEDS ORDERED: CEFTRIAXONE 1 G in IV DEXTROSE 5% 50 ML IV ONE (20:45)
[2019-06-10] MEDS ORDERED: AZITHROMYCIN IV 500 MG in IV DEXTROSE 5% 250 ML IV ONE (20:45)
[2019-06-10] MEDS ORDERED: CYAN-51 PO (20:46)
[2019-06-10] MEDS ORDERED: CLOT15CR4 TP (20:46)
[2019-06-10] MEDS ORDERED: ALBU6.7H9 INH (20:46)
[2019-06-10] MEDS ORDERED: MEMA10TA PO (20:46)
[2019-06-10] MEDS ORDERED: FAMO-132 PO (20:46)
[2019-06-10] MEDS ORDERED: BISA10SU61 RC (20:46)
[2019-06-10] MEDS ORDERED: NA P133E4 RC (20:46)
[2019-06-10] MEDS ORDERED: MELA3TAB41 PO (20:46)
[2019-06-10] MEDS ORDERED: ALPR0.5T8 PO (20:46)
[2019-06-10] MEDS ORDERED: METF-440 PO (20:46)
[2019-06-10] MEDS ORDERED: GUAI120013 PO (20:46)
[2019-06-10] MEDS ORDERED: TIOT18CA3 IH (20:46)
[2019-06-10] MEDS ORDERED: LOPE2CAP40 PO (20:46)
[2019-06-10] MEDS ORDERED: BUDE10.22 IH (20:46)
[2019-06-10] MEDS ORDERED: ASPIRIN 325 MG TABLET ONE (20:50)
[2019-06-10] MEDS ORDERED: AZITHROMYCIN 500MG/ D5W 250ML IVPB **ER PYXIS ONLY IV ONE (20:51)
[2019-06-10] MEDS ORDERED: CEFTRIAXONE /D5W 50ML IVPB **ER PYXIS IV ONE (20:51)
--- NOTE | 2019-06-10 21:23 | NUR ---
DR MENDIOLA SPOKE WITH DR ARCE ACCEPTED PATIENT FOR ADMISSION [facility].
[2019-06-10 22:00] VITALS: BP 100/69
--- NOTE | 2019-06-10 22:00 | NUR ---
Patient arrived in the unit @2200 from ER via gurney. Patient is a calm and pleasant 69 year old man who came to the ER from [facility] complaining of shortness of breath. Patient was found to have patchy pneumonia in the mid right lung. He has a productive cough. Patient is on PUI for COVID-19 as he is from a facility known to us for having active COVID-19 patients. COVID-19 swab done in the ER and reportedly done at his home facility. Patient is A/O x 2 and cooperative. Patient has a 20gauge peripheral IV in the right AC.
--- NOTE | 2019-06-10 22:00 | NUR ---
Pt. admitted to [facility] / CCU 1 FOR CONVENIENCE, under care of Dr. ARCE Belongs List completed
[2019-06-10] MEDS: ALPRAZOLAM 0.5 MG TABLET PO SCH (22:57)
[2019-06-10 23:00] VITALS: BP 94/65
[2019-06-10] MEDS ORDERED: BISACODYL 10 MG SUPP.RECT RC PRN (23:00)
[2019-06-10] MEDS ORDERED: FAMOTIDINE 20 MG TABLET PO PRN (23:00)
[2019-06-10] MEDS ORDERED: ONDANSETRON 4 MG/2 ML VIAL IV PRN (23:00)
[2019-06-10] MEDS ORDERED: MAGNESIUM HYDROXIDE 30 ML LIQUID UDC PO PRN (23:00)
[2019-06-10] MEDS ORDERED: ACETAMINOPHEN 325 MG TABLET PO PRN (23:00)
[2019-06-10] MEDS ORDERED: FLEET ENEMA 133 ML BOTTLE RC PRN (23:00)
[2019-06-10] MEDS ORDERED: HEPARIN/D5W DRIP 500 ML IV PRN (23:00)
[2019-06-10] MEDS: MELATONIN 3 MG TABLET PO SCH (23:02)
[2019-06-10] MEDS ORDERED: ALBUTEROL SULFATE 2.5 MG/3 ML NEBU NEB PRN (23:15)
[2019-06-11] VITALS (21 sets, daily range): BP systolic 91–174; BP diastolic 59–92
--- NOTE | 2019-06-11 | NUR ---
Order for heparin drip. Per protocol, starting rate 1200units/hr, with [address] Jacob said to not give bolus and just begin infusion at the rate per protocol. PTT draw in 6 hours @0600.
[2019-06-11] MEDS: HEPARIN/D5W DRIP 500 ML IV PRN (00:57)
[2019-06-11 06:14] LABS: BASOPHILS % (AUTO) 0.5 % (0.0-2.0); EOSINOPHILS % (AUTO) 0.5 % (0.0-7.0); HEMATOCRIT 46.4 % (36.7-47.1); HEMOGLOBIN 15.6 g/dL (12.5-16.3); LYMPHOCYTES # (AUTO) 0.9 K/uL (20.0-40.0); LYMPHOCYTES % (AUTO) 15.1 % (20.5-51.5); MEAN CORPUSCULAR HEMOGLOBIN 30.3 uug (23.8-33.4); MEAN CORPUSCULAR HGB CONC 34 g/dL (32.5-36.3); MEAN CORPUSCULAR VOLUME 90.2 fL (73.0-96.2); MONOCYTES # (AUTO) 0.3 K/uL (2.0-10.0); MONOCYTES % (AUTO) 5.5 % (0.0-11.0); NEUTROPHILS # (AUTO) 4.5 K/uL (1.8-8.9); NEUTROPHILS % (AUTO) 78.4 % (38.5-71.5); PLATELET COUNT (AUTO) 119 K/uL (152-348); RED BLOOD CELL COUNT(AUTO) 5.15 MIL/uL (4.06-5.63); WHITE BLOOD COUNT (AUTO) 5.7 K/uL (3.6-10.2)
--- NOTE | 2019-06-11 06:30 | NUR ---
PTT 80.6 per protocol heparin drip reduced by 100units/hr to 100units/hr. Order faxed to pharmacy. Repeat PTT in 6 hours @0160.
[2019-06-11 06:33] LABS: BILIRUBIN,TOTAL 0.6 mg/dL (0.2-1.0); CREATININE 1.2 mg/dL (0.6-1.3); MAGNESIUM 2.4 mg/dL (1.8-2.4); PHOSPHOROUS 3.6 mg/dL (2.5-4.9); POTASSIUM 3.6 mmol/L (3.5-5.1); TOTAL PROTEIN, SERUM 6.9 g/dL (6.4-8.2)
[2019-06-11 06:39] LABS: THYROID STIMULATING HORMONE 0.891 mIU/mL (0.358-3.740)
--- NOTE | 2019-06-11 07:30 | NUR ---
dr bartholomew in the unit to see patient. please refer to order history for new orders. sputum specimen obtained and sent to lab
[2019-06-11] MEDS ORDERED: HEPARIN SODIUM,PORCINE 5,000 UNITS/ML VIAL IV PRN (08:00)
[2019-06-11] MEDS ORDERED: METFORMIN HCL 500 MG TABLET PO SCH (08:00)
[2019-06-11] MEDS: ALPRAZOLAM 0.5 MG TABLET PO SCH ×2 (08:08→21:25)
[2019-06-11] MEDS ORDERED: DEXTROSE 50% 50 ML DISP.SYRIN IV PRN (08:45)
[2019-06-11] MEDS: ASPIRIN 81 MG TAB.CHEW PO SCH (10:17)
[2019-06-11] MEDS: DOXYCYCLINE HYCLATE IV 100 MG in IV DEXTROSE 5% 100 ML IV SCH ×2 (10:17→21:25)
[2019-06-11] MEDS: METOPROLOL SUCCINATE XL 25 MG TAB.SR.24H PO SCH (10:18)
--- NOTE | 2019-06-11 11:00 | NUR ---
duggan catheter order obtained from dr chavis.
[2019-06-11 11:26] LABS: *BLOOD, URINE 3+ (NEGATIVE); *CLARITY,URINE SLIGHTLY CLOUDY (CLEAR); *KETONES,URINE 1+ (NEGATIVE); *UROBILINOGEN,URINE 0.2 E.U./dl (NORMAL); LEUKOCYTE ESTERASE ,URINE NEGATIVE (NEGATIVE); NITRITE, URINE NEGATIVE (NEGATIVE); PH,URINE 5.5 (5.0-8.0); UGLUCOSE NEGATIVE (NEGATIVE)
[2019-06-11 11:30] LABS: *BILIRUBIN,URIN 1+ (NEGATIVE); *COLOR,URINE DARK YELLOW (YELLOW)
[2019-06-11 11:36] LABS: BACTERIA,URINE NONE SEEN /HPF (NONE SEEN); WBC,URINE 0-3 /HPF (0-3)
[2019-06-11 11:37] LABS: MUCUS,URINE MODERATE /LPF (0-FEW); SQUAMOUS EPITHELIAL CELL,UR FEW /HPF (NONE SEEN)
[2019-06-11 11:38] LABS: URINE AMORPHOUS URATE FEW /HPF
[2019-06-11] MEDS: BLOOD SUGAR DIAGNOSTIC 1 EACH STRIP VI SCH ×3 (12:12→21:51)
[2019-06-11] MEDS: FLUTICASONE/VILANTEROL 1 EACH BLST.W.DEV INH SCH (13:10)
[2019-06-11] MEDS: INSULIN REGULAR, HUMAN 300 UNIT/3 ML VIAL SQ PRN ×2 (13:10→17:25)
[2019-06-11] MEDS: METFORMIN HCL 500 MG TABLET PO SCH (16:48)
--- NOTE | 2019-06-11 17:43 | NUR ---
blood pressure trending high above 160's called dr randhawa and obtained orders.
[2019-06-11] MEDS ORDERED: hydrALAZINE HCL 20 MG/1 ML VIAL IV PRN (17:45)
[2019-06-11] MEDS: LOSARTAN POTASSIUM 25 MG TABLET PO SCH (18:35)
[2019-06-11] MEDS: CEFTRIAXONE 1 G in IV DEXTROSE 5% 50 ML IV SCH (21:25)
[2019-06-11] MEDS: MELATONIN 3 MG TABLET PO SCH (21:26)
[2019-06-12] VITALS (22 sets, daily range): BP systolic 62–123; BP diastolic 44–75
[2019-06-12 05:08] LABS: BASOPHILS % (AUTO) 0.4 % (0.0-2.0); EOSINOPHILS % (AUTO) 0.2 % (0.0-7.0); HEMATOCRIT 43.8 % (36.7-47.1); HEMOGLOBIN 14.9 g/dL (12.5-16.3); LYMPHOCYTES # (AUTO) 0.9 K/uL (20.0-40.0); MEAN CORPUSCULAR HEMOGLOBIN 30.4 uug (23.8-33.4); MEAN CORPUSCULAR HGB CONC 34 g/dL (32.5-36.3); MEAN CORPUSCULAR VOLUME 89.3 fL (73.0-96.2); MONOCYTES # (AUTO) 0.4 K/uL (2.0-10.0); MONOCYTES % (AUTO) 6.9 % (0.0-11.0); NEUTROPHILS # (AUTO) 4.8 K/uL (1.8-8.9); NEUTROPHILS % (AUTO) 78.5 % (38.5-71.5); PLATELET COUNT (AUTO) 124 K/uL (152-348); RED BLOOD CELL COUNT(AUTO) 4.91 MIL/uL (4.06-5.63); WHITE BLOOD COUNT (AUTO) 6.1 K/uL (3.6-10.2)
[2019-06-12 06:06] LABS: BILIRUBIN,DIRECT 0.1 mg/dL (0.0-0.2); BILIRUBIN,TOTAL 0.8 mg/dL (0.2-1.0); CREATININE 1.2 mg/dL (0.6-1.3); MAGNESIUM 2.2 mg/dL (1.8-2.4); POTASSIUM 3.4 mmol/L (3.5-5.1); TOTAL PROTEIN, SERUM 6.4 g/dL (6.4-8.2)
[2019-06-12 06:08] LABS: ABG BASE EXCESS 1.2 mmol/L; ABG HCO3 24.7 mmol/L; ABG PH 7.455 (7.350-7.450); ABG PO2 62.6 mmHg (75.0-100.0); ABG SITE LEFT RADIAL; COHb 1.2 % (0.5-1.5); MetHb 0.3 % (0.0-1.5); O2Hb 91.3 % (94.0-97.0); VENT MODE Nasal Cannula
[2019-06-12] MEDS: HEPARIN/D5W DRIP 500 ML IV PRN (07:15)
--- NOTE | 2019-06-12 07:45 | NUR ---
Pulmonary services, Dr. Nascimento in the unit to see and examine patient, report given see order hx.
[2019-06-12] MEDS: BLOOD SUGAR DIAGNOSTIC 1 EACH STRIP VI SCH ×4 (07:48→20:42)
[2019-06-12] MEDS: INSULIN REGULAR, HUMAN 300 UNIT/3 ML VIAL SQ PRN ×2 (07:50→11:59)
[2019-06-12] MEDS: ALPRAZOLAM 0.5 MG TABLET PO SCH ×2 (08:01→20:42)
[2019-06-12] MEDS: METFORMIN HCL 500 MG TABLET PO SCH ×2 (08:03→17:41)
[2019-06-12] MEDS: ASPIRIN 81 MG TAB.CHEW PO SCH (08:03)
[2019-06-12] MEDS: LOSARTAN POTASSIUM 25 MG TABLET PO SCH (08:04)
[2019-06-12] MEDS: METOPROLOL SUCCINATE XL 25 MG TAB.SR.24H PO SCH (08:12)
[2019-06-12] MEDS: FLUTICASONE/VILANTEROL 1 EACH BLST.W.DEV INH SCH (08:13)
[2019-06-12] MEDS: DOXYCYCLINE HYCLATE IV 100 MG in IV DEXTROSE 5% 100 ML IV SCH ×2 (08:13→20:16)
--- NOTE | 2019-06-12 10:00 | NUR ---
Cardiology services, Dr. Araujo in the unit to see and examine patient.
[2019-06-12] MEDS: POTASSIUM CHLORIDE 50 ML IV SCH ×2 (10:32→11:38)
--- NOTE | 2019-06-12 12:12 | NUR ---
Cardiology services, called to be notified that potassium infusion replacement stopped due to irritation to right arm. awaiting response./
[2019-06-12] MEDS ORDERED: POTASSIUM CHLORIDE 20 MEQ POWDER PACKET GT ONE (13:15)
[2019-06-12] MEDS ORDERED: HYDROXYCHLOROQUINE SULFATE 200 MG TABLET PO ONE (16:30)
--- NOTE | 2019-06-12 17:15 | NUR ---
A call to Egg Tester Dr. Araujo to be notified of sustained low sbp with heart rate in the 80's and patient symptomatic. Orders to hold sbp, and per pharmacy protocol sbp medications have to be dcd not hold. Addendum: 06/12/19 at 1729 by DOUGLAS TROY RN md herrera.
[2019-06-12] MEDS ORDERED: IV NORMAL SALINE 500 ML IV ONE ×2 (17:30→19:00)
--- NOTE | 2019-06-12 18:15 | NUR ---
Patient left on bed sleeping sbp of 83/58, Hr of 84. bolus of Ns 500 given as ordered. As per circular stuffer continue to monitor.
--- NOTE | 2019-06-12 18:45 | NUR ---
Patient remains with sbp of 79/48 with Hr of [address] Araujo called and notified orders for a 2nd dose of 500cc. and upgrade pt. to ICU status and start levophed if needed to maintain sbp above 90's.
[2019-06-12] MEDS ORDERED: NOREPINEPHRINE BITARTRATE 8 MG in IV NORMAL SALINE 242 ML IV PRN ×2 (19:00→19:15)
[2019-06-12] MEDS: CEFTRIAXONE 1 G in IV DEXTROSE 5% 50 ML IV SCH (20:16)
[2019-06-12] MEDS: MELATONIN 3 MG TABLET PO SCH (20:42)
--- NOTE | 2019-06-12 21:15 | NUR ---
Levophed not started; sbp 120 after moving BP cuff to left arm from right calf; will monitor closely.
[2019-06-13] VITALS (21 sets, daily range): BP systolic 90–127; BP diastolic 46–87
[2019-06-13 05:58] LABS: FERRITIN 2602 ng/mL (26-388); LACTATE DEHYDROGENASE 487 U/L (85-227)
[2019-06-13] MEDS: BLOOD SUGAR DIAGNOSTIC 1 EACH STRIP VI SCH ×4 (06:04→21:33)
--- NOTE | 2019-06-13 06:16 | NUR ---
Patient rested well in between care; lethargic at start of shift but now more awake asking for brekfast; SBP maintained above 90s; bed bath rendered; repositioned q2h; dressing to left arm done; needs attended; safety maintained; continue to monitor; continue plan of care; will endorse. last bp 110/67 SR ; 94% on 4L NC; afebrile.
--- NOTE | 2019-06-13 06:42 | NUR ---
PTT remains therapeutic at 63.1; next PTT draw tomorrow 06/14/2019
[2019-06-13] MEDS: MORPHINE SULFATE 2 MG/1 ML DISP.SYRIN IV PRN ×2 (07:51→14:28)
[2019-06-13] MEDS: ALPRAZOLAM 0.5 MG TABLET PO SCH ×2 (08:06→20:24)
[2019-06-13] MEDS: METFORMIN HCL 500 MG TABLET PO SCH ×2 (08:06→16:53)
[2019-06-13] MEDS: ASPIRIN 81 MG TAB.CHEW PO SCH (08:06)
[2019-06-13] MEDS: HYDROXYCHLOROQUINE SULFATE 200 MG TABLET PO SCH (08:08)
[2019-06-13] MEDS: FLUTICASONE/VILANTEROL 1 EACH BLST.W.DEV INH SCH (08:10)
[2019-06-13] MEDS: DOXYCYCLINE HYCLATE IV 100 MG in IV DEXTROSE 5% 100 ML IV SCH ×2 (08:10→20:23)
[2019-06-13] MEDS: INSULIN REGULAR, HUMAN 300 UNIT/3 ML VIAL SQ PRN ×2 (17:38→21:42)
--- NOTE | 2019-06-13 18:45 | NUR ---
Attending physician Dr. Nidia Parra in the unit to see and examine patient. Report given.
--- NOTE | 2019-06-13 18:46 | NUR ---
Cardiology services, Dr. Mae Mancini in the unit to see and examine patient. report given see order hx.
--- NOTE | 2019-06-13 18:47 | NUR ---
Left patient in bed, AAOx1. remains pleasantly confused at times, easily redirected. Hemodinamically stable. No c/o pain.
--- NOTE | 2019-06-13 19:20 | NUR ---
Received patient in bed in semifowler's position. Patient is A/Ox1 and fairly agitated, tearing off his BP cuff and fidgeting in bed. Patient remains on 5L o2 via NC, SR/St on the monitor. [place] midline, right 20g AC peripheral iv. Bass catheter in place draining jeb urine.
[2019-06-13] MEDS: MELATONIN 3 MG TABLET PO SCH (20:24)
[2019-06-13] MEDS: CEFTRIAXONE 1 G in IV DEXTROSE 5% 50 ML IV SCH (20:24)
--- NOTE | 2019-06-13 20:30 | NUR ---
Went into the room to administer his medications, adjust his position, and to answer his concerns. He stated he needed to urinate, however he was unaware he had a Bass catheter in place, which i showed him that it is taking care of his urine for him, which he understood. After being reassured and repositioned in bed, he seemed to calm down considerably and was happily watching TV.
[2019-06-14] VITALS (24 sets, daily range): BP systolic 95–150; BP diastolic 50–94
[2019-06-14 05:11] LABS: BILIRUBIN,TOTAL 0.6 mg/dL (0.2-1.0); MAGNESIUM 2.5 mg/dL (1.8-2.4); PHOSPHOROUS 3.8 mg/dL (2.5-4.9); POTASSIUM 3.7 mmol/L (3.5-5.1)
[2019-06-14 05:14] LABS: BASOPHILS % (AUTO) 0.3 % (0.0-2.0); EOSINOPHILS # (AUTO) 0.2 K/uL (0.0-0.7); EOSINOPHILS % (AUTO) 2.4 % (0.0-7.0); HEMATOCRIT 38.3 % (36.7-47.1); HEMOGLOBIN 12.7 g/dL (12.5-16.3); LYMPHOCYTES # (AUTO) 0.8 K/uL (20.0-40.0); LYMPHOCYTES % (AUTO) 11.8 % (20.5-51.5); MEAN CORPUSCULAR HEMOGLOBIN 30.3 uug (23.8-33.4); MEAN CORPUSCULAR HGB CONC 33 g/dL (32.5-36.3); MEAN CORPUSCULAR VOLUME 91.1 fL (73.0-96.2); MONOCYTES # (AUTO) 0.5 K/uL (2.0-10.0); MONOCYTES % (AUTO) 7.9 % (0.0-11.0); NEUTROPHILS # (AUTO) 5.4 K/uL (1.8-8.9); NEUTROPHILS % (AUTO) 77.6 % (38.5-71.5); PLATELET COUNT (AUTO) 175 K/uL (152-348); RED BLOOD CELL COUNT(AUTO) 4.21 MIL/uL (4.06-5.63); WHITE BLOOD COUNT (AUTO) 6.9 K/uL (3.6-10.2)
[2019-06-14] MEDS: MORPHINE SULFATE 2 MG/1 ML DISP.SYRIN IV PRN ×3 (06:17→16:57)
[2019-06-14 06:33] LABS: ABG BASE EXCESS 0.5 mmol/L; ABG HCO3 24.3 mmol/L; ABG PCO2 36.5 mmHg (35.0-45.0); ABG PH 7.441 (7.350-7.450); ABG PO2 68.4 mmHg (75.0-100.0); ABG SITE LEFT RADIAL; ABG TOTAL HEMOGLOBIN 13.6 G/dL (13.5-18.0); COHb 1.1 % (0.5-1.5); MetHb 0.2 % (0.0-1.5); O2Hb 92.6 % (94.0-97.0); VENT MODE Nasal Cannula
[2019-06-14] MEDS: BLOOD SUGAR DIAGNOSTIC 1 EACH STRIP VI SCH ×4 (07:04→21:18)
--- NOTE | 2019-06-14 08:00 | NUR ---
Pulmonary services Dr. Nascimento in the unit, full report given. See order history for new orders. Dr. Nascimento at bedside assessing patient.
[2019-06-14] MEDS: METFORMIN HCL 500 MG TABLET PO SCH ×2 (08:04→16:39)
[2019-06-14] MEDS: DOXYCYCLINE HYCLATE IV 100 MG in IV DEXTROSE 5% 100 ML IV SCH ×2 (08:05→20:00)
[2019-06-14] MEDS: ALPRAZOLAM 0.5 MG TABLET PO SCH ×2 (08:05→20:01)
[2019-06-14] MEDS: METOPROLOL SUCCINATE XL 25 MG TAB.SR.24H PO SCH (08:05)
[2019-06-14] MEDS: HYDROXYCHLOROQUINE SULFATE 200 MG TABLET PO SCH (08:05)
[2019-06-14] MEDS: ASPIRIN 81 MG TAB.CHEW PO SCH (08:05)
[2019-06-14] MEDS: INSULIN REGULAR, HUMAN 300 UNIT/3 ML VIAL SQ PRN ×3 (08:10→21:22)
[2019-06-14] MEDS: FLUTICASONE/VILANTEROL 1 EACH BLST.W.DEV INH SCH (09:13)
--- NOTE | 2019-06-14 14:30 | NUR ---
Cardiology services Dr. Wall in the unit, full report given to Dr. Wall. See order history for new orders.
--- NOTE | 2019-06-14 18:36 | NUR ---
Attending MD Dr. Cheney in the unit, full report given to Dr. Cheney. See order history for new orders.
[2019-06-14] MEDS: CEFTRIAXONE 1 G in IV DEXTROSE 5% 50 ML IV SCH (20:00)
[2019-06-14] MEDS: MELATONIN 3 MG TABLET PO SCH (20:00)
[2019-06-14] MEDS: IV NORMAL SALINE 250 ML IV PRN (22:01)
[2019-06-15] VITALS (16 sets, daily range): BP systolic 91–141; BP diastolic 55–89
[2019-06-15 05:32] LABS: BASOPHILS % (AUTO) 0.2 % (0.0-2.0); EOSINOPHILS # (AUTO) 0.2 K/uL (0.0-0.7); EOSINOPHILS % (AUTO) 2.8 % (0.0-7.0); HEMATOCRIT 40.3 % (36.7-47.1); HEMOGLOBIN 13.1 g/dL (12.5-16.3); LYMPHOCYTES # (AUTO) 0.6 K/uL (20.0-40.0); LYMPHOCYTES % (AUTO) 6.9 % (20.5-51.5); MEAN CORPUSCULAR HEMOGLOBIN 29.8 uug (23.8-33.4); MEAN CORPUSCULAR HGB CONC 33 g/dL (32.5-36.3); MEAN CORPUSCULAR VOLUME 91.6 fL (73.0-96.2); MONOCYTES # (AUTO) 0.7 K/uL (2.0-10.0); MONOCYTES % (AUTO) 7.9 % (0.0-11.0); NEUTROPHILS % (AUTO) 82.2 % (38.5-71.5); PLATELET COUNT (AUTO) 220 K/uL (152-348); RED BLOOD CELL COUNT(AUTO) 4.41 MIL/uL (4.06-5.63); WHITE BLOOD COUNT (AUTO) 8.5 K/uL (3.6-10.2)
[2019-06-15 06:20] LABS: MAGNESIUM 2.4 mg/dL (1.8-2.4); PHOSPHOROUS 3.9 mg/dL (2.5-4.9); POTASSIUM 3.9 mmol/L (3.5-5.1)
--- NOTE | 2019-06-15 07:00 | NUR ---
DOCTOR HERNANDEZ IN THE UNIT TO SEE PATIENT. REFER TO ORDER HISTORY FOR NEW ORDERS. PATIENT CAN BE DOWNGRADED TELE FROM PULMONARY STAND POINT.
[2019-06-15] MEDS: BLOOD SUGAR DIAGNOSTIC 1 EACH STRIP VI SCH ×4 (07:30→22:16)
[2019-06-15] MEDS: DOXYCYCLINE HYCLATE IV 100 MG in IV DEXTROSE 5% 100 ML IV SCH ×2 (08:01→21:48)
[2019-06-15] MEDS: ALPRAZOLAM 0.5 MG TABLET PO SCH ×2 (08:02→21:50)
[2019-06-15] MEDS: ASPIRIN 81 MG TAB.CHEW PO SCH (08:02)
[2019-06-15] MEDS: METFORMIN HCL 500 MG TABLET PO SCH ×2 (08:02→16:03)
[2019-06-15] MEDS: METOPROLOL SUCCINATE XL 25 MG TAB.SR.24H PO SCH (08:03)
[2019-06-15] MEDS: HYDROXYCHLOROQUINE SULFATE 200 MG TABLET PO SCH (08:03)
[2019-06-15] MEDS: FLUTICASONE/VILANTEROL 1 EACH BLST.W.DEV INH SCH (09:46)
[2019-06-15] MEDS: INSULIN REGULAR, HUMAN 300 UNIT/3 ML VIAL SQ PRN ×2 (09:49→22:17)
[2019-06-15] MEDS: ENOXAPARIN SODIUM 40 MG/0.4 ML DISP.SYRIN SQ SCH (09:51)
[2019-06-15] MEDS: MORPHINE SULFATE 2 MG/1 ML DISP.SYRIN IV PRN ×2 (11:25→16:43)
--- NOTE | 2019-06-15 12:00 | NUR ---
DOCTOR JONATHAN IN THE UNIT TO SEE PATIENT. PLEASE REFER TO ORDER HISTORY FOR FURTHER ORDERS.
--- NOTE | 2019-06-15 12:00 | NUR ---
DR YAZMIN GALEANA TO TRANSFER TO THE FLOOR. PATIENT MAY REQUIRE SITTER. PATIENT TRIES TO GET OF BED FREQUENTLY AND IS CONFUSED DEMENTIA. REORIENTATION AND FREQUENT SAFETY MONITORING NEEDED. PENDING ACQUIRING A SITTER TO BE OUT ON THE FLOOR FOR PATIENT.
--- NOTE | 2019-06-15 15:00 | NUR ---
DOCTOR DINORA IN THE UNIT TO SEE PATIENT.
[2019-06-15] MEDS: CEFTRIAXONE 1 G in IV DEXTROSE 5% 50 ML IV SCH (21:48)
[2019-06-15] MEDS: MELATONIN 3 MG TABLET PO SCH (21:49)
[2019-06-16] VITALS (16 sets, daily range): BP systolic 101–154; BP diastolic 57–82
[2019-06-16] MEDS: MORPHINE SULFATE 2 MG/1 ML DISP.SYRIN IV PRN ×4 (02:27→23:29)
[2019-06-16 05:42] LABS: BASOPHILS % (AUTO) 0.3 % (0.0-2.0); EOSINOPHILS # (AUTO) 0.2 K/uL (0.0-0.7); EOSINOPHILS % (AUTO) 2.6 % (0.0-7.0); HEMOGLOBIN 12.7 g/dL (12.5-16.3); LYMPHOCYTES # (AUTO) 0.5 K/uL (20.0-40.0); LYMPHOCYTES % (AUTO) 6.6 % (20.5-51.5); MEAN CORPUSCULAR HEMOGLOBIN 29.7 uug (23.8-33.4); MEAN CORPUSCULAR HGB CONC 33 g/dL (32.5-36.3); MEAN CORPUSCULAR VOLUME 91.2 fL (73.0-96.2); MONOCYTES # (AUTO) 0.7 K/uL (2.0-10.0); MONOCYTES % (AUTO) 9.4 % (0.0-11.0); NEUTROPHILS # (AUTO) 6.4 K/uL (1.8-8.9); NEUTROPHILS % (AUTO) 81.1 % (38.5-71.5); PLATELET COUNT (AUTO) 257 K/uL (152-348); RED BLOOD CELL COUNT(AUTO) 4.28 MIL/uL (4.06-5.63); WHITE BLOOD COUNT (AUTO) 7.9 K/uL (3.6-10.2)
[2019-06-16 06:52] LABS: BILIRUBIN,DIRECT 0.2 mg/dL (0.0-0.2); BILIRUBIN,TOTAL 0.7 mg/dL (0.2-1.0); CREATININE 0.9 mg/dL (0.6-1.3); MAGNESIUM 2.4 mg/dL (1.8-2.4); PHOSPHOROUS 3.7 mg/dL (2.5-4.9); POTASSIUM 3.7 mmol/L (3.5-5.1); TOTAL PROTEIN, SERUM 6.2 g/dL (6.4-8.2)
--- NOTE | 2019-06-16 07:20 | NUR ---
received report from shift foreman nurse, patient in bed awake aggitated moaning, Sinus tachycardia, oxygen mask on 5L, bed in low position, side rails up x2. bed alarm set.
[2019-06-16] MEDS ORDERED: POTASSIUM CHLORIDE 20 MEQ POWDER PACKET PO ONE (08:00)
[2019-06-16] MEDS: METFORMIN HCL 500 MG TABLET PO SCH ×3 (08:54→17:26)
[2019-06-16] MEDS: ASPIRIN 81 MG TAB.CHEW PO SCH (08:56)
[2019-06-16] MEDS: HYDROXYCHLOROQUINE SULFATE 200 MG TABLET PO SCH (08:56)
[2019-06-16] MEDS: METOPROLOL SUCCINATE XL 25 MG TAB.SR.24H PO SCH (08:56)
[2019-06-16] MEDS: ALPRAZOLAM 0.5 MG TABLET PO SCH ×2 (08:56→20:04)
[2019-06-16] MEDS: DOXYCYCLINE HYCLATE IV 100 MG in IV DEXTROSE 5% 100 ML IV SCH ×2 (09:00→20:04)
[2019-06-16] MEDS: FLUTICASONE/VILANTEROL 1 EACH BLST.W.DEV INH SCH (09:01)
[2019-06-16] MEDS: ENOXAPARIN SODIUM 40 MG/0.4 ML DISP.SYRIN SQ SCH (09:01)
[2019-06-16] MEDS: methylPREDNISolone SOD SUCC 40 MG/ML VIAL IV SCH ×3 (09:11→20:06)
--- NOTE | 2019-06-16 09:30 | NUR ---
DOCTOR DINORA IN THE UNIT TO SEE PATIENT.
[2019-06-16] MEDS: IV NORMAL SALINE 250 ML IV PRN (09:44)
[2019-06-16] MEDS: BLOOD SUGAR DIAGNOSTIC 1 EACH STRIP VI SCH ×2 (10:15→12:25)
[2019-06-16] MEDS: INSULIN REGULAR, HUMAN 300 UNIT/3 ML VIAL SQ PRN (10:16)
--- NOTE | 2019-06-16 14:45 | NUR ---
contacted Dr. Jacob as patient has become diaphoretic, lethargic, and minimal urine output noted. Patients blood sugar checked and noted to be 170, Orders received for iv fluids.
[2019-06-16] MEDS: IV NS 1000 ML 1,000 ML IV PRN (15:22)
--- NOTE | 2019-06-16 18:11 | NUR ---
Patient reported chest pain after eating dinner, morphine given, contacted Dr. chavis, and received orders for Troponin stat.
--- NOTE | 2019-06-16 19:04 | NUR ---
Reported results of ekg and troponin to Dr. Araujo.
--- NOTE | 2019-06-16 19:05 | NUR ---
patient currently in bed on Mask 5L and nasal cannula 2L, patient is sinus tachycardic, duggan draining, and agitated at this time. Patient was sleeping and lethargic most of the day and diaphoretic, linens changed and frequent repositioning. Patient slept throughout lunch but was able to wake up and eat dinner.Currently in bed, reorder of wrist soft restraints as patient is taking off mask and desaturating quickly.
[2019-06-16] MEDS: CEFTRIAXONE 1 G in IV DEXTROSE 5% 50 ML IV SCH (20:03)
[2019-06-16] MEDS: MELATONIN 3 MG TABLET PO SCH (20:04)
[2019-06-17] VITALS (15 sets, daily range): BP systolic 109–160; BP diastolic 57–92
[2019-06-17] MEDS: IV NS 1000 ML 1,000 ML IV PRN (05:22)
[2019-06-17] MEDS: methylPREDNISolone SOD SUCC 40 MG/ML VIAL IV SCH ×3 (05:23→22:07)
[2019-06-17 05:33] LABS: LYMPHOCYTES % (AUTO) 5.3 % (20.5-51.5); MEAN CORPUSCULAR HEMOGLOBIN 29.9 uug (23.8-33.4); MEAN CORPUSCULAR HGB CONC 33 g/dL (32.5-36.3); MEAN CORPUSCULAR VOLUME 91.8 fL (73.0-96.2); NEUTROPHILS % (AUTO) 88.4 % (38.5-71.5); PLATELET COUNT (AUTO) 309 K/uL (152-348); RED BLOOD CELL COUNT(AUTO) 4.36 MIL/uL (4.06-5.63)
[2019-06-17 05:34] LABS: BASOPHILS % (AUTO) 0.1 % (0.0-2.0); LYMPHOCYTES # (AUTO) 0.4 K/uL (20.0-40.0); MONOCYTES # (AUTO) 0.5 K/uL (2.0-10.0); MONOCYTES % (AUTO) 6.2 % (0.0-11.0); NEUTROPHILS # (AUTO) 7.1 K/uL (1.8-8.9)
[2019-06-17 06:02] LABS: MAGNESIUM 2.4 mg/dL (1.8-2.4); PHOSPHOROUS 3.1 mg/dL (2.5-4.9); POTASSIUM 4.2 mmol/L (3.5-5.1)
--- NOTE | 2019-06-17 07:15 | NUR ---
Received report from night club manager nurse, patient in bed awake agitated moaning, Sinus tachycardia, oxygen mask on 5L, bed in low position, side rails up x2. bed alarm set.
[2019-06-17] MEDS: METFORMIN HCL 500 MG TABLET PO SCH ×2 (07:17→16:13)
[2019-06-17] MEDS: MORPHINE SULFATE 2 MG/1 ML DISP.SYRIN IV PRN ×2 (07:17→16:08)
[2019-06-17] MEDS: METOPROLOL SUCCINATE XL 25 MG TAB.SR.24H PO SCH (09:15)
[2019-06-17] MEDS: ALPRAZOLAM 0.5 MG TABLET PO SCH ×2 (09:16→20:30)
[2019-06-17] MEDS: ASPIRIN 81 MG TAB.CHEW PO SCH (09:16)
[2019-06-17] MEDS: DOXYCYCLINE HYCLATE IV 100 MG in IV DEXTROSE 5% 100 ML IV SCH (09:17)
[2019-06-17] MEDS: ENOXAPARIN SODIUM 40 MG/0.4 ML DISP.SYRIN SQ SCH (09:17)
[2019-06-17] MEDS: FLUTICASONE/VILANTEROL 1 EACH BLST.W.DEV INH SCH (09:18)
[2019-06-17] MEDS ORDERED: DEXTROSE 50% 50 ML DISP.SYRIN IV PRN (10:45)
[2019-06-17] MEDS: BLOOD SUGAR DIAGNOSTIC 1 EACH STRIP VI SCH ×3 (12:47→21:00)
[2019-06-17] MEDS: INSULIN REGULAR, HUMAN 300 UNIT/3 ML VIAL SQ PRN ×3 (12:48→21:03)
[2019-06-17] MEDS: IV 1/2NS 1000 ML 1,000 ML IV PRN (15:11)
[2019-06-17] MEDS ORDERED: METOPROLOL TARTRATE 5 MG/5 ML VIAL IVP PRN (18:45)
[2019-06-17] MEDS ORDERED: hydrALAZINE HCL 20 MG/1 ML VIAL IV PRN (19:15)
--- NOTE | 2019-06-17 19:18 | NUR ---
Patient continues to be on nasal cannula 5L, duggan draining, patient had a bm, PRN bp medication order received, Patient in bed, bed in low position, side rails up x2. IV continuous to right upper arm midline.
[2019-06-17] MEDS ORDERED: DC PROPOFOL ONCE EXTUBATED XX PRN (19:30)
--- NOTE | 2019-06-17 19:30 | NUR ---
Report received. Patient is Tele status for 3 days now but in need of a sitter as per report. Was seen by Dr. Wall. Patient is hypertensive, SR rate 80's-90's. Will monitor BP closely. Assessment done. Addendum: 06/17/19 at 2324 by SUSAN SAHNI RN Amended: Links added. Addendum: 06/17/19 at 2324 by SUSAN SAHNI RN Amended: Links added. Addendum: 06/17/19 at 2324 by SUSAN SAHNI RN Amended: Links added. Addendum: 06/17/19 at 2325 by SUSAN SAHNI RN Amended: Links added. Addendum: 06/17/19 at 2327 by SUSAN SAHNI RN Amended: Links added. Addendum: 06/17/19 at 7083 by SUSAN SAHNI RN Amended: Links added.
[2019-06-17] MEDS: CEFTRIAXONE 1 G in IV DEXTROSE 5% 50 ML IV SCH (20:29)
[2019-06-17] MEDS: MELATONIN 3 MG TABLET PO SCH (20:31)
--- NOTE | 2019-06-17 20:35 | NUR ---
Patient's daughter Polina called; updated of condition.
[2019-06-18] VITALS (11 sets, daily range): BP systolic 123–158; BP diastolic 51–102
--- NOTE | 2019-06-18 01:00 | NUR ---
Mildly restless, removing monitor electrodes. Bath given for comfort. Turned and repositioned. Tolerated care fairly well. Addendum: 06/18/19 at 0138 by SUSAN SAHNI RN Amended: Links added.
[2019-06-18 05:00] LABS: BASOPHILS % (AUTO) 0.2 % (0.0-2.0); HEMATOCRIT 38.7 % (36.7-47.1); HEMOGLOBIN 12.7 g/dL (12.5-16.3); LYMPHOCYTES # (AUTO) 0.9 K/uL (20.0-40.0); LYMPHOCYTES % (AUTO) 7.8 % (20.5-51.5); MEAN CORPUSCULAR HEMOGLOBIN 30.1 uug (23.8-33.4); MEAN CORPUSCULAR HGB CONC 33 g/dL (32.5-36.3); MEAN CORPUSCULAR VOLUME 91.6 fL (73.0-96.2); MONOCYTES # (AUTO) 0.8 K/uL (2.0-10.0); MONOCYTES % (AUTO) 6.8 % (0.0-11.0); NEUTROPHILS % (AUTO) 85.2 % (38.5-71.5); PLATELET COUNT (AUTO) 354 K/uL (152-348); RED BLOOD CELL COUNT(AUTO) 4.23 MIL/uL (4.06-5.63); WHITE BLOOD COUNT (AUTO) 11.7 K/uL (3.6-10.2)
[2019-06-18] MEDS: methylPREDNISolone SOD SUCC 40 MG/ML VIAL IV SCH ×3 (05:38→21:15)
[2019-06-18] MEDS: IV 1/2NS 1000 ML 1,000 ML IV PRN ×2 (05:38→21:07)
[2019-06-18 05:47] LABS: BILIRUBIN,TOTAL 0.5 mg/dL (0.2-1.0); CREATININE 1.1 mg/dL (0.6-1.3); MAGNESIUM 2.5 mg/dL (1.8-2.4); PHOSPHOROUS 4.2 mg/dL (2.5-4.9); POTASSIUM 4.1 mmol/L (3.5-5.1); TOTAL PROTEIN, SERUM 6.3 g/dL (6.4-8.2)
--- NOTE | 2019-06-18 06:00 | NUR ---
Restless again; pulling monitor leads. Medicated with Morphine IV. Coughing non productively. Repositioned and medicated with Morphine IV.
[2019-06-18] MEDS: MORPHINE SULFATE 2 MG/1 ML DISP.SYRIN IV PRN (06:10)
[2019-06-18] MEDS: BLOOD SUGAR DIAGNOSTIC 1 EACH STRIP VI SCH ×4 (06:37→21:56)
--- NOTE | 2019-06-18 07:00 | NUR ---
Spoke to Neela Cid re: patient's restlessness. Will order Ativan.
--- NOTE | 2019-06-18 07:30 | NUR ---
RECIEVED PT LYING IN BED, AWAKE, RESTLESS AND CONFUSE. TRYING TO GET OUT OF THE BED. BOTH WRISTS ARE ON RESTRAINTS FOR MEDICAL SAFETY. PT SPEECH IS GARBLED BUT HE WAS ABLE TO SAY HIS NAME. HR IS SR-ST NO ECTOPY. RESPIRATION IS FAST, O2SAT IS 93-97 ON 4LNC. MAIN IVF IS INFUSING WELL VIA THE SAGAR MIDLINE.
[2019-06-18] MEDS: METFORMIN HCL 500 MG TABLET PO SCH ×2 (08:00→17:19)
--- NOTE | 2019-06-18 08:30 | NUR ---
ASSISTED WITH FEEDING AND PT IS OCCASSIONALLY COUGHING. SEEN AND EXAMINED BY DR HERNANDEZ WITH NEW ORDERS.
[2019-06-18] MEDS: METOPROLOL SUCCINATE XL 25 MG TAB.SR.24H PO SCH (09:00)
[2019-06-18] MEDS: ASPIRIN 81 MG TAB.CHEW PO SCH (09:00)
[2019-06-18] MEDS: ENOXAPARIN SODIUM 40 MG/0.4 ML DISP.SYRIN SQ SCH (09:00)
[2019-06-18] MEDS: FLUTICASONE/VILANTEROL 1 EACH BLST.W.DEV INH SCH (09:00)
[2019-06-18] MEDS: ALPRAZOLAM 0.5 MG TABLET PO SCH ×2 (09:00→21:15)
[2019-06-18] MEDS: LORAZEPAM 2 MG/1 ML VIAL IV PRN ×2 (10:20→18:15)
--- NOTE | 2019-06-18 10:20 | NUR ---
PT IS INCREASINGLY ANXIOUS AND AGITATED. MEDICATED WITH ATIVAN 0.5MG SLOW IVP ORDERED. PT ABLE TO CALM DOWN AND FALL ASLEEP.
--- NOTE | 2019-06-18 12:00 | NUR ---
PT IS VERY SOUND ASLEEP AND JUST STARTED TO CALM DOWN. DECIDED TO SKIP THE ACCU CHECK AT THIS TIME. IS AWARE.
[2019-06-18] MEDS: INSULIN REGULAR, HUMAN 300 UNIT/3 ML VIAL SQ PRN ×2 (16:28→22:06)
--- NOTE | 2019-06-18 18:15 | NUR ---
Pt is getting restless and agitated, trying to get out of the bed andmanaged to pull out his o2 even when restraint. medicated with Ativan 0.5mg slow IVP. Calmed down a little bit.
[2019-06-18] MEDS: CEFTRIAXONE 1 G in IV DEXTROSE 5% 50 ML IV SCH (21:10)
[2019-06-18] MEDS: MELATONIN 3 MG TABLET PO SCH (21:11)
[2019-06-19 00:01] VITALS: BP 145/80
[2019-06-19] MEDS: LORAZEPAM 2 MG/1 ML VIAL IV PRN ×2 (00:02→14:28)
[2019-06-19 04:00] VITALS: BP 148/78
[2019-06-19 05:25] LABS: BASOPHILS % (AUTO) 0.1 % (0.0-2.0); HEMATOCRIT 36.5 % (36.7-47.1); HEMOGLOBIN 12.2 g/dL (12.5-16.3); LYMPHOCYTES # (AUTO) 0.7 K/uL (20.0-40.0); LYMPHOCYTES % (AUTO) 7.5 % (20.5-51.5); MEAN CORPUSCULAR HEMOGLOBIN 30.6 uug (23.8-33.4); MEAN CORPUSCULAR HGB CONC 33 g/dL (32.5-36.3); MEAN CORPUSCULAR VOLUME 91.7 fL (73.0-96.2); MONOCYTES # (AUTO) 0.6 K/uL (2.0-10.0); MONOCYTES % (AUTO) 6.6 % (0.0-11.0); NEUTROPHILS # (AUTO) 7.6 K/uL (1.8-8.9); NEUTROPHILS % (AUTO) 85.8 % (38.5-71.5); PLATELET COUNT (AUTO) 346 K/uL (152-348); RED BLOOD CELL COUNT(AUTO) 3.98 MIL/uL (4.06-5.63); WHITE BLOOD COUNT (AUTO) 8.9 K/uL (3.6-10.2)
[2019-06-19 05:45] LABS: CREATININE 0.9 mg/dL (0.6-1.3); MAGNESIUM 2.4 mg/dL (1.8-2.4); PHOSPHOROUS 4.3 mg/dL (2.5-4.9)
[2019-06-19] MEDS: methylPREDNISolone SOD SUCC 40 MG/ML VIAL IV SCH ×3 (05:56→21:10)
--- NOTE | 2019-06-19 06:00 | NUR ---
Patient pulled out Bass; replaced with 16F.
[2019-06-19] MEDS: BLOOD SUGAR DIAGNOSTIC 1 EACH STRIP VI SCH ×4 (07:49→21:30)
[2019-06-19] MEDS: INSULIN REGULAR, HUMAN 300 UNIT/3 ML VIAL SQ PRN ×3 (07:50→21:33)
[2019-06-19 08:00] VITALS: BP 149/75
[2019-06-19] MEDS: ENOXAPARIN SODIUM 40 MG/0.4 ML DISP.SYRIN SQ SCH (08:08)
--- NOTE | 2019-06-19 08:30 | NUR ---
SEEN AND EXAMINED BY DR VERA WITH NEW ORDERS.
[2019-06-19] MEDS: FLUTICASONE/VILANTEROL 1 EACH BLST.W.DEV INH SCH (08:40)
[2019-06-19] MEDS: METFORMIN HCL 500 MG TABLET PO SCH ×2 (08:45→17:58)
[2019-06-19] MEDS: ASPIRIN 81 MG TAB.CHEW PO SCH (08:45)
[2019-06-19] MEDS: ALPRAZOLAM 0.5 MG TABLET PO SCH (08:45)
[2019-06-19] MEDS: METOPROLOL SUCCINATE XL 25 MG TAB.SR.24H PO SCH (08:46)
--- NOTE | 2019-06-19 10:00 | NUR ---
SEEN AND EXAMINED BY DR HERNANDEZ WITH NEW ORDERS.
--- NOTE | 2019-06-19 10:30 | NUR ---
PT IS VERY AGITATED AND RESTLESS. PULLED OUT HIS OXYGEN, SATURATION IS DOWN TO 85-96%. PLACED BACK ON OXYGEN AT 2LNC. O2 SATURATION MAINTAINED AT 92-96%.
[2019-06-19 12:00] VITALS: BP 155/97
[2019-06-19] MEDS: IV 1/2NS 1000 ML 1,000 ML IV PRN (12:45)
--- NOTE | 2019-06-19 13:00 | NUR ---
CALLED UP [facility] AND SPOKE TO RODO RENNER, DR GARNER RELATIONSHIP MANAGER , PT HAS A CONSULT FOR PSYCHE EVALUTION. MESSAGE TO RELAY TO DR GARNER.
--- NOTE | 2019-06-19 13:15 | NUR ---
SPEECH THERAPIST IN THE ROOM FOR PATIENT'S SWALLOW EVALUTION. WILL RECOMMENT A PUREE DIET.
--- NOTE | 2019-06-19 14:30 | NUR ---
PSYCHE MD DR GARNER CALLED AND ASKED ABOUT THE PT'S CONSULT. HE IS NOT SEING COVID PT AND ALSO IF PT NOT ABLE TO TALK OVER THE PHONE. REQUESTED TO HAVE THE PMD CALL HIM.
--- NOTE | 2019-06-19 15:00 | NUR ---
NOTIFIED DR VERA REGARDING WHAT THE PSYCHE MD STATEMENT VIRGILIO. STATED THAT SHE IS OK FOR PT TO BE DISCHARGED BACK TO [facility] WITH A PSYCHE CONSULT. COIL FORMER MADE AWARE.
[2019-06-19 16:00] VITALS: BP 162/100
--- NOTE | 2019-06-19 19:13 | NUR ---
report received from ICU on duty nurse, patient is awake, resp even nonlabored, skin warm and dry to touch. no distress noted, duggan catheter is intact draining good amount of yellow clear urine, alert oriented x1, per ICU nurse patient might go to [facility]. will endorse accordinglyl, soft wrist restrain is discontinued, patient has 1;1 sitter for safety and to close monitor.
--- NOTE | 2019-06-19 19:48 | NUR ---
report given to overnight cashier nurse.
[2019-06-19] MEDS: MELATONIN 3 MG TABLET PO SCH (21:10)
[2019-06-19] MEDS: QUETIAPINE FUMARATE 25 MG TABLET PO SCH (21:11)
--- NOTE | 2019-06-19 22:00 | NUR ---
Received patient lying bed watching TV. Patient has 1:1 sitter, for confusion. AxOx 2, confused but follows commands. Patient was coughing and appeared anxious. Suction done patient is calm. patient is on 2.5L NC O2 saturating at 97. Vitals signs stable, no temperature, 98, HR 85, RR 18, BP 162/75. Accucheck BS: 231, covered with 4 units. Patient took all medication as tolerable, crushed with apple sauce. Patient BP rechecked 133/ 81. Emptied Bass 200cc. Patient is resting in bed, no signs of discomfort noted. All need attended to. Patient kept comfortable, all safety measure in place. Will continue to monitor through the night.
[2019-06-19] MEDS ORDERED: ALPRAZOLAM 0.5 MG TABLET ONE (23:15)
[2019-06-19 23:51] VITALS: BP 162/75
[2019-06-20] VITALS: BP 128/63
[2019-06-20] MEDS: ALPRAZOLAM 0.5 MG TABLET PO SCH ×3 (02:20→21:18)
[2019-06-20] MEDS: methylPREDNISolone SOD SUCC 40 MG/ML VIAL IV SCH ×3 (05:54→21:23)
[2019-06-20] MEDS: BLOOD SUGAR DIAGNOSTIC 1 EACH STRIP VI SCH ×4 (06:16→21:00)
[2019-06-20 06:27] LABS: BASOPHILS % (AUTO) 0.1 % (0.0-2.0); HEMATOCRIT 39.9 % (36.7-47.1); HEMOGLOBIN 13.2 g/dL (12.5-16.3); LYMPHOCYTES # (AUTO) 0.6 K/uL (20.0-40.0); LYMPHOCYTES % (AUTO) 6.1 % (20.5-51.5); MEAN CORPUSCULAR HEMOGLOBIN 30.2 uug (23.8-33.4); MEAN CORPUSCULAR HGB CONC 33 g/dL (32.5-36.3); MEAN CORPUSCULAR VOLUME 91.2 fL (73.0-96.2); MONOCYTES % (AUTO) 9.9 % (0.0-11.0); NEUTROPHILS # (AUTO) 8.7 K/uL (1.8-8.9); NEUTROPHILS % (AUTO) 83.9 % (38.5-71.5); PLATELET COUNT (AUTO) 359 K/uL (152-348); RED BLOOD CELL COUNT(AUTO) 4.37 MIL/uL (4.06-5.63); WHITE BLOOD COUNT (AUTO) 10.3 K/uL (3.6-10.2)
[2019-06-20 06:52] LABS: CREATININE 1.1 mg/dL (0.6-1.3); MAGNESIUM 2.6 mg/dL (1.8-2.4); PHOSPHOROUS 3.4 mg/dL (2.5-4.9)
--- NOTE | 2019-06-20 07:00 | NUR ---
Patient remained stable through the night, slept well half the night and was anxious and restless towards the morning, trying to pull his Bass. Axox2, follows commands. Vitals stable, no signs and symptoms of SOB, no fever, on 2.5LNC saturating between 93-95%. PM care done, patient kept comfortable, clean and dry. Bass emptied 550, no bowel movement. Remains with 1:1 sitter. Plan is to discharge in the morning. Endorse report to next shift.
[2019-06-20 07:09] VITALS: BP 131/75
[2019-06-20] MEDS: IV 1/2NS 1000 ML 1,000 ML IV PRN ×2 (07:37→16:16)
[2019-06-20 07:48] VITALS: BP 164/80
[2019-06-20] MEDS: METFORMIN HCL 500 MG TABLET PO SCH ×2 (07:59→16:34)
[2019-06-20] MEDS: ASPIRIN 81 MG TAB.CHEW PO SCH (08:00)
[2019-06-20] MEDS: FLUTICASONE/VILANTEROL 1 EACH BLST.W.DEV INH SCH (08:01)
[2019-06-20] MEDS: METOPROLOL SUCCINATE XL 25 MG TAB.SR.24H PO SCH (08:01)
[2019-06-20] MEDS: ENOXAPARIN SODIUM 40 MG/0.4 ML DISP.SYRIN SQ SCH (08:13)
[2019-06-20] MEDS: INSULIN REGULAR, HUMAN 300 UNIT/3 ML VIAL SQ PRN ×4 (08:14→22:23)
--- NOTE | 2019-06-20 10:30 | NUR ---
duggan removed per Dr. Torres
[2019-06-20 12:00] VITALS: BP 135/70
--- NOTE | 2019-06-20 12:00 | NUR ---
Patient had one urine post duggan removal.
[2019-06-20] MEDS ORDERED: METO-356 PO ×2 (12:52→13:11)
[2019-06-20] MEDS ORDERED: ENOX40DI SQ (12:52)
[2019-06-20] MEDS ORDERED: ASPI81TA31 PO (12:52)
[2019-06-20] MEDS ORDERED: QUET25TA PO ×2 (12:52→13:11)
[2019-06-20] MEDS ORDERED: PRED20TA PO ×2 (12:55→13:11)
[2019-06-20] MEDS ORDERED: ASPI-605 PO (13:11)
[2019-06-20] MEDS ORDERED: ENOX40DI SUBCUT (13:11)
[2019-06-20] MEDS: MORPHINE SULFATE 2 MG/1 ML DISP.SYRIN IV PRN (14:06)
--- NOTE | 2019-06-20 14:36 | NUR ---
patient IV removed, belongings accounted for, Pharmacy update checked and Dr Dee contacted to inform of medication changes, and update awaiting to discharge med list.
--- NOTE | 2019-06-20 15:30 | NUR ---
Patient discharge has been cancelled as Dr. Nascimento did not agree that patient is stable for discharge. IV to right a/c reinserted.
[2019-06-20 17:06] VITALS: BP 156/81
--- NOTE | 2019-06-20 18:38 | NUR ---
Patient continues to bed impulsive and trying to get out of bed. Patient precautions maintained, and sitter at the door. Bed in low position, side rails up x2. Bed alarm set. patiennt on 2.5L nasal cannula. Mittens ordered to prevent pulling lines. Urine monitoring, successful, patient voiding with no duggan at this time..
[2019-06-20 20:00] VITALS: BP 147/78
[2019-06-20] MEDS ORDERED: ATORVASTATIN 10 MG TABLET PO SCH (21:00)
[2019-06-20] MEDS: CARVEDILOL 6.25 MG TABLET PO SCH (21:18)
[2019-06-20] MEDS: QUETIAPINE FUMARATE 25 MG TABLET PO SCH (21:18)
[2019-06-20] MEDS: MELATONIN 3 MG TABLET PO SCH (21:19)
[2019-06-21] VITALS: BP 158/75
[2019-06-21] MEDS: LORAZEPAM 2 MG/1 ML VIAL IV PRN (03:06)
[2019-06-21 04:00] VITALS: BP 120/71
[2019-06-21] MEDS: BLOOD SUGAR DIAGNOSTIC 1 EACH STRIP VI SCH ×2 (07:08→11:33)
--- NOTE | 2019-06-21 07:20 | NUR ---
Received patient in bed, agitated and restless. No s/s of acute respiratory distress. Bed in lowest position, side rails up x2, call light within reach, sitter at bedside. Will continue to monitor.
[2019-06-21] MEDS: ALPRAZOLAM 0.5 MG TABLET PO SCH (08:51)
[2019-06-21] MEDS: ASPIRIN 81 MG TAB.CHEW PO SCH (08:51)
[2019-06-21 08:52] VITALS: BP 137/84
[2019-06-21] MEDS: METFORMIN HCL 500 MG TABLET PO SCH (08:52)
[2019-06-21] MEDS: methylPREDNISolone SOD SUCC 40 MG/ML VIAL IV SCH (08:52)
[2019-06-21] MEDS: CARVEDILOL 6.25 MG TABLET PO SCH (08:52)
[2019-06-21] MEDS: INSULIN REGULAR, HUMAN 300 UNIT/3 ML VIAL SQ PRN ×2 (08:53→11:34)
[2019-06-21] MEDS: ENOXAPARIN SODIUM 40 MG/0.4 ML DISP.SYRIN SQ SCH (08:54)
[2019-06-21] MEDS: FLUTICASONE/VILANTEROL 1 EACH BLST.W.DEV INH SCH (08:54)
[2019-06-21] MEDS: MORPHINE SULFATE 2 MG/1 ML DISP.SYRIN IV PRN (09:42)
--- NOTE | 2019-06-21 12:40 | NUR ---
Discharged patient to [facility]. Pt picked up via ambulance. D/C IV.
[2019-06-21] MEDS ORDERED: predniSONE 20 MG TABLET PO SCH (18:00)
== END 2019-06-21 12:45 | DRG 871 ==
LOC: ER 19:33 → CCU 21:44 → TELE 06-19 18:40
PROVIDERS: ADMIT Internal Medicine; ATTEND Student in an Organized Health Care Education/Training Program
PROC: 05HY33Z Insertion of Infusion Device into Upper Vein, Percutaneous Approach (ICD-10-PCS; principal; 2019-06-12)
DX: A41.89 Other specified sepsis (principal); U07.1 COVID-19; J12.89 Other viral pneumonia; J96.01 Acute respiratory failure with hypoxia; G92 Toxic encephalopathy; E43 Unspecified severe protein-calorie malnutrition; K72.00 Acute and subacute hepatic failure without coma; R65.21 Severe sepsis with septic shock; I21.A1 Myocardial infarction type 2; J44.0 Chronic obstructive pulmonary disease with (acute) lower respiratory infection; D68.69 Other thrombophilia; E87.0 Hyperosmolality and hypernatremia; N17.9 Acute kidney failure, unspecified; J44.1 Chronic obstructive pulmonary disease with (acute) exacerbation; F03.90 Unspecified dementia, unspecified severity, without behavioral disturbance, psychotic disturbance, mood disturbance, and anxiety; J20.8 Acute bronchitis due to other specified organisms; B19.20 Unspecified viral hepatitis C without hepatic coma; D69.6 Thrombocytopenia, unspecified; F41.9 Anxiety disorder, unspecified; I10 Essential (primary) hypertension; Z66 Do not resuscitate; Z79.82 Long term (current) use of aspirin; R74.0 Nonspecific elevation of levels of transaminase and lactic acid dehydrogenase [LDH]; E11.9 Type 2 diabetes mellitus without complications; F17.210 Nicotine dependence, cigarettes, uncomplicated; M50.30 Other cervical disc degeneration, unspecified cervical region; R31.9 Hematuria, unspecified; Z68.26 Body mass index [BMI] 26.0-26.9, adult
CPT/HCPCS: 36415; 36600; 70030-TC; 71045; 82785; 83605; 83615; 83735; 84100; 84443; 85025; 85651; 85730; 86140; 86803; 87040; 87070; 87086; 87400; 87806; 93005; 93307; A4663; G0378; J0456; J0696; J1644; J1650; J1815; J2060; J2270; J2920; J3480; J3490; J7030; J7040; J7050; J7060; J7512

== ENCOUNTER 2023-01-27 22:33 | Emergency (ER) | payer MEDICARE, OTHER ==
[~2023-01-27] VITALS: Ht 177.8 cm; Wt 70.3 kg
[~2023-01-27 22:33] MED LIST changes: -ALBU2.5V13 NEB; +ALBU6.7H9 INH; -AMLO5TAB9 PO; -ASCO500C18 PO; +ASPI-605 PO; -ASPI-618 PO; +BISA10SU61 RC; -BISA10SU95 RC; +BUDE10.22 IH; -CLON0.1T14 PO; +CLOT15CR4 TP; +CYAN-51 PO; -CYAN10009 PO; +ENOX40DI SUBCUT; -GUAI-970 PO; +GUAI120013 PO; -IPRA0.2S6 NEB; +LOPE2CAP40 PO; +MEMA10TA PO; +METF-440 PO; +METO-356 PO; -MONT10TA22 PO; -NICOTINE 14 MG TD; +QUET25TA PO; +TIOT18CA3 IH; -TRYP500C PO; -VITA400C24 PO; -ZINC1CAP2 PO
[2023-01-27 23:30] LABS: BASOPHILS # (AUTO) 0.3 K/UL (0.0-0.2); BASOPHILS % (AUTO) 2.1 % (0.0-2.0); EOSINOPHILS # (AUTO) 0.1 K/uL (0.0-0.7); EOSINOPHILS % (AUTO) 0.9 % (0.0-7.0); HEMATOCRIT 44.6 % (36.7-47.1); HEMOGLOBIN 14.4 g/dL (12.5-16.3); LYMPHOCYTES # (AUTO) 0.6 K/uL (0.8-4.8); LYMPHOCYTES % (AUTO) 3.9 % (20.5-51.5); MEAN CORPUSCULAR HEMOGLOBIN 29.9 uug (23.8-33.4); MEAN CORPUSCULAR HGB CONC 32 g/dL (32.5-36.3); MEAN CORPUSCULAR VOLUME 92.5 fL (73.0-96.2); MONOCYTES # (AUTO) 0.7 K/uL (0.1-1.30); MONOCYTES % (AUTO) 4.5 % (0.0-11.0); NEUTROPHILS # (AUTO) 13.5 K/uL (1.8-8.9); NEUTROPHILS % (AUTO) 88.6 % (38.5-71.5); PLATELET COUNT (AUTO) 235 K/uL (152-348); RED BLOOD CELL COUNT(AUTO) 4.82 MIL/uL (4.06-5.63); RED CELL DISTRIBUTION WIDTH 13.1 % (12.1-16.2); WHITE BLOOD COUNT (AUTO) 15.2 K/uL (3.6-10.2)
[2023-01-27] MEDS ORDERED: FAMOTIDINE. 20 MG/2 ML VIAL IV ONE ×2 (23:45→23:58)
[2023-01-27 23:47] LABS: DIFFERENTIAL COMMENT 1
[2023-01-27 23:51] LABS: CALCIUM 9.3 mg/dL (8.5-10.1); CARBON DIOXIDE 28 mmol/L (21-32); CHLORIDE 102 mmol/L (98-107); CREATININE 1.1 mg/dL (0.6-1.3); GLUCOSE 225 mg/dL (74-106); POTASSIUM 4.7 mmol/L (3.5-5.1); SODIUM SERUM 139 mmol/L (136-145); UREA NITROGEN, BLOOD 27 mg/dL (7-18)
[2023-01-28 00:05] LABS: ALANINE AMINOTRANSFERASE 25 U/L (16-63); ALBUMIN 3.5 g/dL (3.4-5.0); ALKALINE PHOSPHATASE 91 U/L (50-136); ASPARTATE AMINOTRANSFERASE 15 U/L (15-37); BILIRUBIN,DIRECT 0.1 mg/dL (0.0-0.2); BILIRUBIN,TOTAL 0.4 mg/dL (0.2-1.0); NT-PRO BNP 90 pg/mL (0-125); TOTAL PROTEIN, SERUM 7.3 g/dL (6.4-8.2)
[2023-01-28] MEDS ORDERED: AZIT250T13 PO (03:04)
[2023-01-28 03:12] VITALS: BP 160/97; O2SAT 98
== END 2023-01-28 03:13 | disposition left against medical advice (07) ==
LOC: ER 22:37
DX: R07.89 Other chest pain (principal); J18.9 Pneumonia, unspecified organism; R03.0 Elevated blood-pressure reading, without diagnosis of hypertension; F03.90 Unspecified dementia, unspecified severity, without behavioral disturbance, psychotic disturbance, mood disturbance, and anxiety; Z79.899 Other long term (current) drug therapy; Z79.82 Long term (current) use of aspirin
CPT/HCPCS: 99285; 96374; 71045; 80076; 80048; 83880; 85025; 85730; 84484; 36415; 93005; J3490; A4606; A4663